=== PATIENT | male | born 1990 | race Caucasian/White ===

== ENCOUNTER 2020-03-18 00:51 | Emergency (ER) | payer OTHER, SELFPAY ==
[2020-03-18] VITALS (15 sets, daily range): BP systolic 118–175; BP diastolic 65–86; PULSE 95–130; RESP 15–16; TEMP 37; O2SAT 96–100; BMI 27.4
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
[2020-03-18] MEDS: ONDANSETRON 4 MG/2 ML INJ IV ×3 (02:05→06:14)
--- NOTE | 2020-03-18 02:07 | PC.NURSE ---
Pt had second emesis, had about 50 ml out. Provider aware
[2020-03-18 02:14] LABS: Add Manual Diff / Slide Review NO; Basophils Absolute Auto 0 /uL (0-100); Basophils Percent Auto 0.7 % (0-2); Eosinophils Absolute Auto 100 /uL (0-450); Eosinophils Percent Auto 1.4 % (2-4); Hematocrit 41.6 % (41-53); Hemoglobin 13.9 g/dL (13.5-17.5); Lymphocytes Absolute Auto 1800 /uL (1100-4500); Lymphocytes Percent Auto 31.9 % (25-40); Mean Corpuscular HGB Conc 33.5 % (30-36); Mean Corpuscular Hemoglobin 29.5 PG (26-34); Mean Corpuscular Volume 88.3 fL (80-100); Monocytes Absolute Auto 400 /uL (0-900); Monocytes Percent Auto 6.3 % (3-14); Neutrophils Absolute Auto 3400 /uL (1500-7000); Neutrophils Percent Auto 59.7 % (50-75); Platelet Count 297 X10^3/uL (150-400); Red Blood Cell Count 4.72 X10^6/uL (4.5-5.9); Red Cell Distribution Width 12.7 % (11.6-14.8); White Blood Cell Count 5.8 X10^3/uL (4.5-11.0)
[2020-03-18] MEDS: TET,DIPH,PERTUSS(ACELL),VAC/PF 0.5 ML SYRINGE IM (02:17)
[2020-03-18] MEDS: LIDO 1%/SOD BICARB 8.4% (10ML) 10 ML SYRINGE INJ (02:19)
[2020-03-18 02:21] LABS: BUN Creatinine Ratio 14.5 (6-22); Blood Urea Nitrogen 11 mg/dL (9-20); Calcium 9.2 mg/dL (8.4-10.2); Carbon Dioxide 30 mmol/L (22-32); Chloride 107 mmol/L (98-107); Estimated Glomerular Filt Rate > 60.0 mL/min (>60); Ethanol (ETOH) 188 mg/dL; Glucose 107 mg/dL (70-100); HEMOLYSIS < 15 (0-50); Potassium 3.9 mmol/L (3.4-5.1); Sodium 145 mmol/L (137-145)
--- NOTE | 2020-03-18 02:38 | PC.NURSE ---
Pt had 3rd episode of vomiting.
[2020-03-18 06:46] LABS: Ethanol (ETOH) 97 mg/dL
--- NOTE | 2020-03-18 07:08 | PC.NURSE ---
Tried oral trial with pt. Pt drank about 240ml. Pt kept down for 10 mins. Then tried ambulated trial. Immediately after ambulating pt had another emesis. Provider aware. Pt complained of headache. new order for tylenol.
[2020-03-18] MEDS: ACETAMINOPHEN 325 MG TABLET 650 MG PO (07:13)
--- NOTE | 2020-03-18 07:17 | PC.NURSE ---
Assumed care 0715 Pt alert, oriented, ambulatory, c/o continuing headache/nausea, md aware, family bedside
[2020-03-18] MEDS: LACTATED RINGERS 1,000 ML 1000 ML IV (07:23)
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
--- NOTE | 2020-03-18 09:10 | PC.NURSE ---
Pt taking small sips of water without further vomiting, reports persistent dizziness and headache, md notified
[2020-03-18] MEDS: ONDANSETRON 4 MG ODT PREPACK 1 BOTTLE MISC (10:28)
--- NOTE | 2020-03-23 18:36 | ED.HEATRA ---
HPI - Head Injury General Chief complaint: Trauma Stated complaint: Fall with head injury, ETOH Time Seen by Provider: 03/18/20 00:52 Source: EMS Mode of arrival: EMS Limitations: other (Intoxication) Related Data Previous Rx's Medication Instructions Recorded ondansetron 4 mg PO TID-QID PRN #10 tab 03/18/20 Allergies Allergy/AdvReac Type Severity Reaction Status Date / Time cranberry [CRANBERRY] Allergy Unknown Verified 03/23/20 15:53 Patient History Medical History (Updated 03/18/20 @ 10:22 by Dony Paez DO) Healthy adult Social History Smoking Status: Never smoker alcohol intake: current Smoking Status: Never smoker alcohol intake frequency: a few times a week Substance Use Type: marijuana Exam Initial Vital Signs Initial Vital Signs: Vital Signs Temperature 98.6 F 03/18/20 00:55 Pulse Rate 99 H 03/18/20 00:55 Respiratory Rate 15 03/18/20 00:55 Blood Pressure 153/74 H 03/18/20 00:55 Pulse Oximetry 99 03/18/20 00:55 Course Orders Ordered: ED Orders 03/23/20 18:07 CT head/brain wo con Stat Discontinued Medications Acetaminophen (Acetaminophen 325 Mg Tablet) 650 mg PO NOW ONE Stop: 03/18/20 07:07 Last Admin: 03/18/20 07:13 Dose: 650 mg Documented by: CHARMAINE Diphtheria/Tetanus/Acell Pertussis (Tet,Diph,Pertuss(Acell),Vac/Pf 0.5 Ml Syringe) 0.5 ml IM .ONCE ONE Stop: 03/18/20 01:07 Last Admin: 03/18/20 02:17 Dose: 0.5 ml Documented by: ARYAN Lactated Ringer's (Lactated Ringers) 1,000 mls @ 1,000 mls/hr IV BOLUS ONE Stop: 03/18/20 08:20 Last Infusion: 03/18/20 08:28 Dose: 0 mls/hr Documented by: Admin: 03/18/20 07:23 Dose: 1,000 mls/hr Documented by: CHARMAINE Lidocaine/Sodium Bicarbonate (Lido 1%/Sod Bicarb 8.4% (10ml) 10 Ml Syringe) 10 ml INJ NOW ONE Stop: 03/18/20 00:57 Last Admin: 03/18/20 02:19 Dose: 10 ml Documented by: ARYAN Ondansetron HCl (Ondansetron 4 Mg/2 Ml Inj) 4 mg IV NOW ONE Stop: 03/18/20 01:53 Last Admin: 03/18/20 02:05 Dose: 4 mg Documented by: ARYAN Ondansetron HCl (Ondansetron 4 Mg/2 Ml Inj) 4 mg IV NOW ONE Stop: 03/18/20 02:36 Last Admin: 03/18/20 02:41 Dose: 4 mg Documented by: TRAV Ondansetron HCl (Ondansetron 4 Mg/2 Ml Inj) 4 mg IV NOW ONE Stop: 03/18/20 06:04 Last Admin: 03/18/20 06:14 Dose: 4 mg Documented by: ARYAN Ondansetron HCl (Ondansetron 4 Mg Odt Prepack) 1 bottle MISC SEEINSTR ONE Stop: 03/18/20 10:18 Last Admin: 03/18/20 10:28 Dose: 1 bottle Documented by: CHARMAINE [facility] - Head Injury Lab Data Result diagrams: 03/18/20 02:00 03/18/20 02:00 Labs: Lab Results 03/18/20 03/18/20 03/18/20 Range/Units 02:00 02:00 06:30 WBC 5.8 (4.5-11.0) X10^3/uL RBC 4.72 (4.5-5.9) X10^6/uL Hgb 13.9 (13.5-17.5) g/dL Hct 41.6 (41-53) % MCV 88.3 (80-100) fL MCH 29.5 (26-34) PG MCHC 33.5 (30-36) % RDW 12.7 (11.6-14.8) % Plt Count 297 (150-400) X10^3/uL Neut % (Auto) 59.7 (50-75) % Lymph % (Auto) 31.9 (25-40) % [place] % (Auto) 6.3 (3-14) % Eos % (Auto) 1.4 L (2-4) % Baso % (Auto) 0.7 (0-2) % Neut # (Auto) 3400 (8329-9276) /uL Lymph # (Auto) 1800 (7317-4958) /uL [place] # (Auto) 400 (0-900) /uL Eos # (Auto) 100 (0-450) /uL Baso # (Auto) 0 (0-100) /uL Sodium 145 (137-145) mmol/L Potassium 3.9 (3.4-5.1) mmol/L Chloride 107 (98-107) mmol/L Carbon Dioxide 30 (22-32) mmol/L BUN 11 (9-20) mg/dL Creatinine 0.76 (0.66-1.25) mg/dL Estimated GFR > 60.0 (>60) mL/min BUN/Creatinine Ratio 14.5 (6-22) Glucose 107 H (70-100) mg/dL Calcium 9.2 (8.4-10.2) mg/dL Ethyl Alcohol 188 H 97 H ( - 10) mg/dL Discharge Plan Departure Patient Disposition: Home Clinical Impression: Alcohol intoxication Qualifiers: Complication of substance-induced condition: uncomplicated Qualified Code(s): F10.920 - Alcohol use, unspecified with intoxication, uncomplicated Laceration of scalp Qualifiers: Encounter type: initial encounter Qualified Code(s): S01.01XA - Laceration without foreign body of scalp, initial encounter Closed fracture of occipital bone Qualifiers: Encounter type: initial encounter Occipital fracture type: unspecified fracture of occiput Laterality: right Qualified Code(s): S02.119A - Unspecified fracture of occiput, initial encounter for closed fracture Abrasion of face Qualifiers: Encounter type: initial encounter Qualified Code(s): S00.81XA - Abrasion of other part of head, initial encounter Concussion Qualifiers: Encounter type: initial encounter Loss of consciousness presence/duration: with LOC of 30 min or less Qualified Code(s): S06.0X1A - Concussion with loss of consciousness of 30 minutes or less, initial encounter Instructions: DI for Trauma Activity Restrictions/Additional Instructions: *You have been diagnosed with [head injury resulting in non-displaced skull fracture, scalp laceration, and severe concussion ] *What to do: *Take medications as directed: tylenol or motrin for pain. Zofran for vomiting (transmitted to [facility]) *Follow up with your primary care provider in 2-3 days, call for an appointment. Let them know you were seen in the Emergency Department and that we ask that you be seen in follow up *Concussion: You have a slight concussion and will likely have a mild headache and some nausea for a few days. Avoiding highly stimulating activities and even TV or computers may be helpful in minimizing your symptoms. Avoid activities that will put you at risk for another head injury for at least a week. You can take tylenol or motrin for headache or the prescription provided for nausea/vomiting. Return for worsening or persistent symptoms *Laceration: Please keep the wound clean and dry to the best of your ability. Please monitor for signs of infection such as redness to the skin or increasing pain. Have the shira removed by your doctor in about 7 days. If you are unable to get into your doctor, we would be happy to remove them here. *Skull fracture: Your fracture will heal over the next 4-6 weeks and does not require any specific intervention. We have been in close consultation with neuro surgery at [facility] and there is no specific follow-up required with them *Return to ER if you should have any new, worsening or concerning symptoms, such as [inability to keep food or drink down, worsening neurologic symptoms such as blurred vision, altered mental status or other bothersome symptoms] Prescriptions: New ondansetron 4 mg tablet,disintegrating 4 mg PO TID-QID PRN (Reason: nausea and vomiting) Qty: 10 RF: 0
== END 2020-03-18 10:29 | disposition home or self-care (01) ==
PROVIDERS: Emergency Medicine; Emergency Provider Emergency Medicine
DX: S06.9X9A Unspecified intracranial injury with loss of consciousness of unspecified duration, initial encounter (principal); S02.119A Unspecified fracture of occiput, initial encounter for closed fracture; S01.01XA Laceration without foreign body of scalp, initial encounter; F10.120 Alcohol abuse with intoxication, uncomplicated; Y90.6 Blood alcohol level of 120-199 mg/100 ml; V00.131A Fall from skateboard, initial encounter; Z23 Encounter for immunization
CPT/HCPCS: 12002; 36415; 70450; 70486; 72125; 80048; 80320; 85025; 90471; 96361; 96374; 96376; 99284; 99285; 90715; J2405

== ENCOUNTER 2020-03-23 15:40 | Emergency (ER) | payer OTHER, SELFPAY ==
[2020-03-23 15:53] VITALS: BP 145/91; PULSE 69; RESP 13; TEMP 36.8; O2SAT 100; BMI 24.3
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
[2020-03-23 17:08] LABS: COVID19 -Nasal RAPID Negative (Negative)
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
[2020-03-23 20:11] VITALS: BP 143/85; PULSE 61; RESP 17; O2SAT 98
== END 2020-03-23 20:12 | disposition home or self-care (01) ==
PROVIDERS: Emergency Medicine; Emergency Provider Emergency Medicine
DX: S06.0X9A Concussion with loss of consciousness of unspecified duration, initial encounter (principal); S02.91XA Unspecified fracture of skull, initial encounter for closed fracture; R53.83 Other fatigue; Z20.828 Contact with and (suspected) exposure to other viral communicable diseases
CPT/HCPCS: 70450; 87635; 99282; 99283

== ENCOUNTER 2020-03-24 08:26 | Emergency (ER) | payer OTHER, SELFPAY ==
[2020-03-24] VITALS (14 sets, daily range): BP systolic 116–148; BP diastolic 56–84; PULSE 45–96; RESP 12–40; TEMP 36.8; O2SAT 97–99; BMI 25.0
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
[2020-03-24 08:33] LABS: Add Manual Diff / Slide Review NO; Basophils Absolute Auto 0 /uL (0-100); Basophils Percent Auto 0.5 % (0-2); Eosinophils Absolute Auto 100 /uL (0-450); Eosinophils Percent Auto 2.1 % (2-4); Hematocrit 39.7 % (41-53); Hemoglobin 14.4 g/dL (13.5-17.5); Lymphocytes Absolute Auto 2200 /uL (1100-4500); Lymphocytes Percent Auto 31.4 % (25-40); Mean Corpuscular HGB Conc 36.2 % (30-36); Mean Corpuscular Hemoglobin 29.7 PG (26-34); Mean Corpuscular Volume 82.1 fL (80-100); Monocytes Absolute Auto 1000 /uL (0-900); Monocytes Percent Auto 13.7 % (3-14); Neutrophils Absolute Auto 3700 /uL (1500-7000); Neutrophils Percent Auto 52.3 % (50-75); Platelet Count 343 X10^3/uL (150-400); Red Blood Cell Count 4.84 X10^6/uL (4.5-5.9); Red Cell Distribution Width 12.1 % (11.6-14.8); White Blood Cell Count 7.1 X10^3/uL (4.5-11.0)
[2020-03-24 08:40] LABS: BUN Creatinine Ratio 11.5 (6-22); Blood Urea Nitrogen 7 mg/dL (9-20); Calcium 8.5 mg/dL (8.4-10.2); Carbon Dioxide 18 mmol/L (22-32); Estimated Glomerular Filt Rate > 60.0 mL/min (>60); Ethanol (ETOH) < 10 mg/dL; Glucose 120 mg/dL (70-100); Magnesium 1.7 mg/dL (1.6-2.3); Potassium 5.2 mmol/L (3.4-5.1)
[2020-03-24 08:43] LABS: HEMOLYSIS 283 (0-50)
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
[2020-03-24 08:49] LABS: Sodium 110 mmol/L (137-145)
[2020-03-24 08:50] LABS: Chloride 75 mmol/L (98-107)
[2020-03-24 09:14] LABS: Carbon Dioxide 21 mmol/L (22-32); HEMOLYSIS < 15 (0-50); Potassium 3.7 mmol/L (3.4-5.1)
[2020-03-24] MEDS: SODIUM CHLORIDE 3 % 500 ML 17.5 ML IV (09:14)
[2020-03-24 09:17] LABS: Chloride 77 mmol/L (98-107); Sodium 109 mmol/L (137-145)
[2020-03-24 09:51] LABS: Prolactin 36.3 ng/mL (3.7-17.9)
[2020-03-24 09:57] LABS: Thyroid Stimulating Hormone 2.12 uIU/mL (0.47-4.68)
[2020-03-24 10:13] LABS: Appearance Urine UA CLEAR; Bilirubin Urine UA NEGATIVE (NEGATIVE); Color Urine UA YELLOW; Glucose Urine UA TRACE g/dL (Negative); Ketones Urine UA 1+ (NEGATIVE); Leukocyte Esterase Urine UA NEGATIVE (NEGATIVE); Nitrite Urine UA NEGATIVE (Negative); Occult Blood Urine UA NEGATIVE (Negative); Protein Urine UA NEGATIVE (Negative); Specific Gravity Urine UA 1.015 (1.000-1.035); pH Urine UA 6.5 (4.5-8.0)
[2020-03-24 10:22] LABS: UR Morphine/Opiate cutoff 300 Negative (Negative); Ur Creatinine Normal (Normal); Ur Specific Gravity Normal (Normal); Urine Amphetamines Negative (Negative); Urine Barbiturates Negative (Negative); Urine Benzodiazepines Negative (Negative); Urine Cocaine Negative (Negative); Urine MDMA Negative (Negative); Urine Methadone Negative (Negative); Urine Methamphetamines Negative (Negative); Urine Oxycodone Negative (Negative); Urine Phencyclidine Negative (Negative); Urine Tetrahydrocannabinol Negative (Negative); Urine Tricyclic Antidepressant Negative (Negative); Urine pH Normal (Normal)
[2020-03-24 10:43] LABS: COVID19 -Nasal RAPID Negative (Negative)
[2020-03-24 12:02] LABS: Sodium 110 mmol/L (137-145)
[2020-03-24 12:13] LABS: Osmolality, Serum 479
[2020-03-24 12:22] LABS: Creatinine Urine Random 90.5 mg/dL; Sodium Urine Random 78 mmol/L (30-90)
[2020-03-24 13:34] LABS: Sodium 107 mmol/L (137-145)
--- NOTE | 2020-03-24 13:41 | PC.NURSE ---
IV infusion increased to 20ml/hr per MD verbal order. Pt awake/alert. Reports remembering more now than he did upon admission. Denies pain, denies further needs at this time.
[2020-03-24] MEDS: LORazepam 2 MG/ML INJ 0.5 MG IV (14:32)
--- NOTE | 2020-03-24 15:04 | DI.RAD.S_ITS ---
PROCEDURE: XR CHEST 1V INDICATIONS: central line placement TECHNIQUE: One view of the chest was acquired. COMPARISON: None. FINDINGS: Surgical changes and devices: There is a right internal jugular catheter with the tip extending into the superior vena cava approximately 2 cm from the cavoatrial junction. Lungs and pleura: Lungs are clear. No pleural effusions or pneumothorax. Mediastinum: Mediastinal contours appear normal. Heart size is normal. Bones and chest wall: No suspicious bony lesions. Overlying soft tissues appear unremarkable. IMPRESSION: 1. No evidence of pneumothorax. Dictated by: Escobar Lucia M.D. on 03/24/2020 at 15:19 Approved by: Escobar Lucia M.D. on 03/24/2020 at 15:20
--- NOTE | 2020-03-24 15:18 | PC.NURSE ---
Central line placed by MD Flores. Placement confirmed by x ray. Labs drawn from line.
[2020-03-24 15:19] LABS: Sodium 109 mmol/L (137-145)
--- NOTE | 2020-03-24 17:49 | PC.NURSE ---
Critical serum osmolality called to [facility] ICU nurse Bethany.
[2020-03-24 17:53] LABS: Osmolality, Serum 226 (L)
== END 2020-03-24 16:25 | disposition short-term general hospital (02) ==
PROVIDERS: Emergency Provider Emergency Medicine
DX: R56.9 Unspecified convulsions (principal); E87.1 Hypo-osmolality and hyponatremia; S02.91XS Unspecified fracture of skull, sequela; Z20.828 Contact with and (suspected) exposure to other viral communicable diseases
CPT/HCPCS: 36415; 70450; 71045; 80048; 80051; 80305; 80320; 81003; 82570; 83735; 83930; 84146; 84295; 84300; 84443; 85025; 87635; 93005; 96365; 96366; 96375; 99284; 99291; 99292; J2060

== ENCOUNTER → 2020-04-15 11:52 | Outpatient (CLI) | payer OTHER, SELFPAY ==
[2020-04-15 13:02] LABS: Alanine Aminotransferase 19 IU/L (<50); Albumin 5.1 g/dL (3.5-5.0); Albumin Globulin Ratio 1.7 (1.0-2.8); Alkaline Phosphatase 37 U/L (38-126); Aspartate Aminotransferase 25 IU/L (17-59); BUN Creatinine Ratio 14.1 (6-22); Bilirubin Total 0.6 mg/dL (0.2-1.3); Blood Urea Nitrogen 10 mg/dL (9-20); Calcium 9.4 mg/dL (8.4-10.2); Carbon Dioxide 28 mmol/L (22-32); Chloride 91 mmol/L (98-107); Estimated Glomerular Filt Rate > 60.0 mL/min (>60); Glucose 88 mg/dL (70-100); HEMOLYSIS 22 (0-50); Potassium 3.7 mmol/L (3.4-5.1); Sodium 127 mmol/L (137-145); Total Protein 8.1 g/dL (6.3-8.2)
== END ==
PROVIDERS: PCP Family Medicine; Referring Provider Family Medicine; Visit Provider Family Medicine
DX: S06.0X9A Concussion with loss of consciousness of unspecified duration, initial encounter (principal); E87.1 Hypo-osmolality and hyponatremia
CPT/HCPCS: 80053

== ENCOUNTER → 2020-04-19 10:51 | Outpatient (CLI) | payer OTHER, SELFPAY ==
[2020-04-19 11:26] LABS: BUN Creatinine Ratio 14.3 (6-22); Blood Urea Nitrogen 11 mg/dL (9-20); Calcium 9.7 mg/dL (8.4-10.2); Carbon Dioxide 30 mmol/L (22-32); Chloride 97 mmol/L (98-107); Estimated Glomerular Filt Rate > 60.0 mL/min (>60); Glucose 109 mg/dL (70-100); HEMOLYSIS < 15 (0-50); Sodium 132 mmol/L (137-145)
== END ==
PROVIDERS: PCP Family Medicine; Referring Provider Family Medicine; Visit Provider Family Medicine
DX: E87.1 Hypo-osmolality and hyponatremia (principal)
CPT/HCPCS: 36415; 80048

== ENCOUNTER → 2020-04-25 11:04 | Outpatient (CLI) | payer OTHER, SELFPAY ==
[2020-04-25 11:52] LABS: BUN Creatinine Ratio 13.6 (6-22); Blood Urea Nitrogen 11 mg/dL (9-20); Calcium 9.6 mg/dL (8.4-10.2); Carbon Dioxide 31 mmol/L (22-32); Chloride 99 mmol/L (98-107); Estimated Glomerular Filt Rate > 60.0 mL/min (>60); Glucose 127 mg/dL (70-100); HEMOLYSIS < 15 (0-50); Potassium 3.8 mmol/L (3.4-5.1); Sodium 136 mmol/L (137-145)
== END ==
PROVIDERS: PCP Family Medicine; Referring Provider Family Medicine; Visit Provider Family Medicine
DX: E87.1 Hypo-osmolality and hyponatremia (principal)
CPT/HCPCS: 36415; 80048

== ENCOUNTER → 2020-05-05 12:59 | Outpatient (CLI) | payer OTHER, SELFPAY ==
[2020-05-05 14:15] LABS: Sodium 137 mmol/L (137-145)
== END ==
PROVIDERS: PCP Family Medicine; Referring Provider Family Medicine; Visit Provider Family Medicine
DX: E87.1 Hypo-osmolality and hyponatremia (principal)
CPT/HCPCS: 36415; 84295

== ENCOUNTER → 2020-05-11 11:46 | Outpatient (CLI) | payer OTHER, SELFPAY ==
[2020-05-11 13:02] LABS: Sodium 142 mmol/L (137-145)
== END ==
PROVIDERS: PCP Family Medicine; Referring Provider Family Medicine; Visit Provider Family Medicine
DX: E87.1 Hypo-osmolality and hyponatremia (principal)
CPT/HCPCS: 36415; 84295

== ENCOUNTER → 2020-06-28 17:06 | Outpatient (CLI) | payer OTHER, SELFPAY ==
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
== END ==
PROVIDERS: PCP Family Medicine; Referring Provider Family Medicine; Visit Provider Family Medicine
DX: E87.1 Hypo-osmolality and hyponatremia (principal); R30.0 Dysuria; M79.2 Neuralgia and neuritis, unspecified; M62.838 Other muscle spasm
CPT/HCPCS: 72040

== ENCOUNTER → 2020-06-29 11:55 | Outpatient (CLI) | payer OTHER, SELFPAY ==
[2020-06-29 12:10] LABS: Bacteria Urine None Seen; RBC Urine None Seen (0-5/HPF)
[2020-06-29 13:52] LABS: Appearance Urine UA CLEAR; Bilirubin Urine UA NEGATIVE (NEGATIVE); Color Urine UA YELLOW; Glucose Urine UA NEGATIVE (Negative); Ketones Urine UA NEGATIVE (NEGATIVE); Leukocyte Esterase Urine UA TRACE (NEGATIVE); Nitrite Urine UA NEGATIVE (Negative); Occult Blood Urine UA NEGATIVE (Negative); Protein Urine UA NEGATIVE (Negative); Specific Gravity Urine UA 1.025 (1.000-1.035); Urobilinogen Urine UA 0.2 E.U./dL (0.2)
[2020-06-29 14:04] LABS: Amorphous Sediment Urine 1+; Culture Indicated Urine Specimen Cultured; WBC Urine 1-5/HPF (0-5/HPF)
[2020-06-29 14:08] LABS: BUN Creatinine Ratio 11.4 (6-22); Blood Urea Nitrogen 9 mg/dL (9-20); Calcium 9.8 mg/dL (8.4-10.2); Carbon Dioxide 29 mmol/L (22-32); Chloride 99 mmol/L (98-107); Estimated Glomerular Filt Rate > 60.0 mL/min (>60); Glucose 104 mg/dL (70-100); HEMOLYSIS < 15 (0-50); Potassium 4.1 mmol/L (3.4-5.1); Sodium 137 mmol/L (137-145)
== END ==
PROVIDERS: PCP Family Medicine; Referring Provider Family Medicine; Visit Provider Family Medicine
DX: E87.1 Hypo-osmolality and hyponatremia (principal); M62.838 Other muscle spasm; M79.2 Neuralgia and neuritis, unspecified; R30.0 Dysuria
CPT/HCPCS: 36415; 80048; 81001; 87086

== ENCOUNTER → 2020-08-24 14:49 | Outpatient (CLI) | payer OTHER, SELFPAY ==
--- NOTE | 2020-08-24 14:50 | DI.RAD.S_ITS ---
PROCEDURE: XR LUMBAR SPINE 2-3V INDICATIONS: chronic low back pain TECHNIQUE: 3 views of the lumbar spine were acquired. COMPARISON: None. FINDINGS: Bones: 6 [id number] vertebrae are present, variant. L6-S1 facet joint hypertrophy. There is normal bony alignment. No vertebral body compression fractures. No suspicious bony lesions. Soft tissues: Overlying bowel gas pattern is normal. No suspicious soft tissue calcifications. 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 Minimal lower lumbar spine facet joint hypertrophy. Dictated by: Dheeraj Haider M.D. on 08/24/2020 at 17:14 Approved by: Dheeraj Haider M.D. on 08/24/2020 at 17:17
== END ==
PROVIDERS: PCP Family Medicine; Referring Provider Family Medicine; Visit Provider Family Medicine
DX: G89.29 Other chronic pain (principal); M54.2 Cervicalgia; M54.5 Low back pain; M62.838 Other muscle spasm
CPT/HCPCS: 72100

== ENCOUNTER 2020-08-30 19:12 | Emergency (ER) | payer OTHER, SELFPAY ==
[2020-08-30 19:17] VITALS: BP 141/63; PULSE 67; RESP 18; TEMP 36.9; O2SAT 100
[2020-08-30 19:37] LABS: Add Manual Diff / Slide Review NO; Basophils Absolute Auto 0 /uL (0-100); Basophils Percent Auto 1.1 % (0-2); Eosinophils Absolute Auto 100 /uL (0-450); Eosinophils Percent Auto 1.2 % (2-4); Hematocrit 38.9 % (41-53); Hemoglobin 13.2 g/dL (13.5-17.5); Lymphocytes Absolute Auto 1700 /uL (1100-4500); Lymphocytes Percent Auto 42.6 % (25-40); Mean Corpuscular Hemoglobin 28.8 PG (26-34); Mean Corpuscular Volume 84.7 fL (80-100); Monocytes Absolute Auto 400 /uL (0-900); Monocytes Percent Auto 8.9 % (3-14); Neutrophils Absolute Auto 1900 /uL (1500-7000); Neutrophils Percent Auto 46.2 % (50-75); Platelet Count 348 X10^3/uL (150-400); Red Cell Distribution Width 13.2 % (11.6-14.8); White Blood Cell Count 4.1 X10^3/uL (4.5-11.0)
[2020-08-30 19:48] LABS: Alanine Aminotransferase 16 IU/L (<50); Albumin 4.8 g/dL (3.5-5.0); Albumin Globulin Ratio 1.7 (1.0-2.8); Alkaline Phosphatase 46 U/L (38-126); Aspartate Aminotransferase 26 IU/L (17-59); BUN Creatinine Ratio 17.9 (6-22); Bilirubin Total 0.4 mg/dL (0.2-1.3); Blood Urea Nitrogen 15 mg/dL (9-20); Calcium 9.4 mg/dL (8.4-10.2); Carbon Dioxide 28 mmol/L (22-32); Chloride 104 mmol/L (98-107); Estimated Glomerular Filt Rate > 60.0 mL/min (>60); Globulin 2.8 g/dL (1.7-4.1); Glucose 100 mg/dL (70-100); HEMOLYSIS < 15 (0-50); Potassium 3.5 mmol/L (3.4-5.1); Sodium 141 mmol/L (137-145); Total Protein 7.6 g/dL (6.3-8.2)
--- NOTE | 2020-08-30 22:03 | ED_ITS ---
HPI - Weakness General Chief complaint: Weakness Stated complaint: lightheaded Time Seen by Provider: 08/30/20 20:19 Source: patient and family Mode of arrival: Ambulatory Limitations: no limitations History of Present Illness HPI Narrative: This is a 30-year-old male who comes with concern for lightheadedness. Patient has a history of skull fracture followed by development of SIADH and hyponatremia which resulted in persistent seizures and was hospitalized for several days until he was stabilized. Patient states that he has felt very fatigued the last few days and hit a wall today. He has had mild headaches intermittently which he states have been persistent but have not changed in intensity or pattern since his head injury. He denies any new pain other than occasionally when he looks down he will get is easing down his spine. He states he has been seen by his neurologist on had MRI to evaluate for multiple sclerosis which is known to develop in some patients after traumatic head injury. He states this was negative with no findings of his MRI which included his cervical spine. Patient states he occasionally gets tingling his fingers this is not changed or had any new patterns. Patient denies any chest pain or shortness of breath. No nausea or vomiting. No diarrhea constipation. No bowel or bladder incontinence. No new difficulty with ambulation or movement. He does note that he has only been sleeping 4 hours nightly for the past week. He has worked the last 9 days in a row and he fasted for 42 hours earlier in the week. Patient was concerned that he may have developed hypona tremia again came for evaluation. Related Data Previous Rx's Medication Instructions Recorded sodium chloride 1 gram tablet 1,000 mg PO DAILY #30 tab 04/25/20 prednisone 50 mg tablet 50 mg PO DAILY #5 tab 06/28/20 Allergies Allergy/AdvReac Type Severity Reaction Status Date / Time cranberry [CRANBERRY] Allergy Unknown Verified 08/24/20 14:36 Review of Systems Review of Systems ROS Unobtainable: All systems reviewed & are unremarkable except as noted in HPI and below Patient History Medical History Anosmia Asthma (~1994) Cerebral hyponatremia Chicken pox (~1999) Concussion Fractures (~2019) Healthy adult Malaria (~2006) Paresthesia Skull fracture, with loss of consciousness Social History Smoking Status: Never smoker alcohol intake: current Smoking Status: Never smoker alcohol intake frequency: a few times a week Substance Use Type: marijuana Exam Narrative Exam Narrative: GEN: well nourished, well appearing male, alert and oriented x 3, patient appears to be in mild distress. HEENT: Atraumatic, pupils are equal round reactive to light, extraocular movements are intact, nares are clear, moist mucous membranes, no facial droop. HEART: Regular rate and rhythm without murmur, clicks, rubs. LUNGS:Lungs clear to auscultation, no wheezes, rales, crackles, chest moves symmetrically ABD:bowel sounds normal, soft, non-tender, no guarding, rebound, rigidity, no masses noted, no hepatosplenomegaly :No CVA tenderness MSCL: Non-tender, no muscle atrophy, muscles strength 5/5 upper and lower extremities, full range of motion, normal gait NEURO:CN 2-12 intact, sensation normal, reflexes 2/4 upper and lower extremities. finger nose finger test normal, heel hector test normal SKIN: No rash, erythema or other skin changes noted. Initial Vital Signs Initial Vital Signs: Vital Signs Temperature 98.5 F 08/30/20 19:17 Pulse Rate 67 08/30/20 19:17 Respiratory Rate 18 08/30/20 19:17 Blood Pressure 141/63 H 08/30/20 19:17 Pulse Oximetry 100 08/30/20 19:17 Scores GCS Jerod coma scale eye opening: Spontaneous [place] coma scale verbal response: Orientated Jerod coma scale motor response: Obey commands Jerod coma scale total score: 15 Course Orders Ordered: ED Orders 08/30/20 19:20 EKG-12 Lead Stat 08/30/20 19:25 Complete Blood Count AUTO DIFF Stat Comprehensive Metabolic Panel Stat Vital Signs Vital signs: Vital Signs - 8 hr 08/30/20 19:17 08/30/20 22:33 Temperature 98.5 F Pulse Rate 67 60 Respiratory Rate 18 20 Blood Pressure 141/63 H 128/60 Pulse Oximetry 100 98 MDM - Weakness Lab Data Attestation: I reviewed the patient's lab results. Result diagrams: 08/30/20 19:25 08/30/20 19:25 Labs: Lab Results 08/30/20 08/30/20 Range/Units 19:25 19:25 WBC 4.1 L (4.5-11.0) X10^3/uL RBC 4.60 (4.5-5.9) X10^6/uL Hgb 13.2 L (13.5-17.5) g/dL Hct 38.9 L (41-53) % MCV 84.7 (80-100) fL MCH 28.8 (26-34) PG MCHC 34.0 (30-36) % RDW 13.2 (11.6-14.8) % Plt Count 348 (150-400) X10^3/uL Neut % (Auto) 46.2 L (50-75) % Lymph % (Auto) 42.6 H (25-40) % [place] % (Auto) 8.9 (3-14) % Eos % (Auto) 1.2 L (2-4) % Baso % (Auto) 1.1 (0-2) % Neut # (Auto) 1900 (0621-0778) /uL Lymph # (Auto) 1700 (7581-9932) /uL [place] # (Auto) 400 (0-900) /uL Eos # (Auto) 100 (0-450) /uL Baso # (Auto) 0 (0-100) /uL Sodium 141 (137-145) mmol/L Potassium 3.5 (3.4-5.1) mmol/L Chloride 104 (98-107) mmol/L Carbon Dioxide 28 (22-32) mmol/L BUN 15 (9-20) mg/dL Creatinine 0.84 (0.66-1.25) mg/dL Estimated GFR > 60.0 (>60) mL/min BUN/Creatinine Ratio 17.9 (6-22) Glucose 100 (70-100) mg/dL Calcium 9.4 (8.4-10.2) mg/dL Total Bilirubin 0.4 (0.2-1.3) mg/dL AST 26 (17-59) IU/L ALT 16 (<50) IU/L Alkaline Phosphatase 46 (38-126) U/L Total Protein 7.6 (6.3-8.2) g/dL Albumin 4.8 (3.5-5.0) g/dL Globulin 2.8 (1.7-4.1) g/dL Albumin/Globulin Ratio 1.7 (1.0-2.8) ECG Data Attestation: I personally reviewed and interpreted this ECG as follows: Prior ECG tracings: available for review Interpretation: Normal sinus rhythm sinus arrhythmia. Rate of 62 P are 156, QRS of 98 QTC 395. Patient has prior EKG from 03/24/2020 which does appear slightly different in V1 V2 when here for severe hyponatremia MDM Narrative Medical decision making narrative: Is a 30-year-old male with a sensation of lightheadedness but no syncope or near syncope, fatiguing continued symptoms from his initial head injury. Patient was concerned he had redeveloped hyponatremia. His sodium today is an appropriate range. Patient labs do show a mild leukopenia as well as slight anemia although patient does not have a significant change from his baseline. He does not have any platelet changes. Patient is following regularly with a neurologist. His neuro exam is normal. He does not have any other changes consistent with cardiac cause. Patient did have CTA on 05/20/2020 and has since had MRI in the last month with follow up 2 weeks ago to review the results. Yanet does not that he has only been s leeping 4 hours nightly for the past week with a very busy work schedule. He was also fasting for 42 hours. This combination with a significant history of TBI may be contributing to his symptoms. Patient was encouraged to reach out to his neurologist for close follow up and return for any other concerning or worsening symptoms. We also reviewed his labs today and noted his changes on his CBC and that is recommended to follow up and have recheck if not improving. Discharge Plan Departure Patient Disposition: Home Clinical Impression: Intermittent lightheadedness Activity Restrictions/Additional Instructions: Call your neurologist to discuss your symptoms tomorrow and set up follow up as needed Your sodium today is 141. Your labs do show are slightly low with a WBC count of 4.1 and hemoglobin of 13.2 Make sure you are getting sleep, at least 7-8 hours regularly. Please return if you have any other new or worsening symptoms, worsening lightheadedness or passing out, diaphoresis or sweating, severe headaches, new vision changes, new chest pain, shortness of breath, new changes such as loss of sensation, difficulty using your extremities, loss of bowel or bladder control, difficulty with ambulation or other new or concerning symptoms. Prescriptions: No Action sodium chloride 1 gram tablet 1,000 mg PO DAILY Qty: 30 RF: 0 prednisone 50 mg tablet 50 mg PO DAILY Qty: 5 RF: 0 Referrals: Casper Pulido MD [Primary Care Provider] -
[2020-08-30 22:33] VITALS: BP 128/60; PULSE 60; RESP 20; O2SAT 98
== END 2020-08-30 22:34 | disposition home or self-care (01) ==
PROVIDERS: Emergency Provider Emergency Medicine; PCP Family Medicine
DX: R42 Dizziness and giddiness (principal)
CPT/HCPCS: 36415; 80053; 85025; 93005; 99283; 99284

== ENCOUNTER 2020-10-18 22:20 | Emergency (ER) | payer OTHER, SELFPAY ==
[2020-10-18] VITALS (8 sets, daily range): BP systolic 120–156; BP diastolic 61–89; PULSE 63–83; RESP 12–29; TEMP 36.7; O2SAT 98–100; BMI 25.0
--- NOTE | 2020-10-18 22:48 | ED.NAVMDI ---
HPI - Nausea/Vomiting/Diarrhea General Chief complaint: Nausea/Vomiting/Diarrhea Stated complaint: vomiting, diarrhea Time Seen by Provider: 10/18/20 22:47 History of Present Illness HPI Narrative: Patient here with . Complains some o'clock tonight with innumerable amount of nonbloody vomiting and diarrhea. No pain. No recent illness fever chills cough cold congestion. History of TBI with hyponatremia. During history taking patient had brief seizure. No injury. Patient denies any recent pain. No headache. Had seizure with low sodium in the past but is not on any antiepileptic medication. Head brain injury February 2020. Seen here. No drug or alcohol abuse Related Data Previous Rx's Medication Instructions Recorded sodium chloride 1 gram tablet 1,000 mg PO DAILY #30 tab 04/25/20 prednisone 50 mg tablet 50 mg PO DAILY #5 tab 06/28/20 ondansetron 4 mg disintegrating 4 mg PO Q6H PRN #10 tab 10/19/20 tablet Allergies Allergy/AdvReac Type Severity Reaction Status Date / Time cranberry [CRANBERRY] Allergy Unknown Verified 08/24/20 14:36 Review of Systems Review of Systems Narrative: GENERAL: Denies chills, complaint fatigue, malaise, denied fever, sweats. HEENT: Denies sinus pain, ear pain, sore throat RESPIRATORY: Denies dyspnea, cough CARDIOVASCULAR: Denies chest pain, palpitations GASTROINTESTINAL: Complaint nausea, vomiting, and diarrhea, denies abdominal pain : Denies dysuria, frequency, hematuria MUSCULOSKELETAL: denies muscle or bony pain SKIN: Denies rash, skin lesions NEUROLOGIC: Denies weakness, numbness, complaint seizure Patient History Medical History Anosmia Asthma (~1994) Cerebral hyponatremia Chicken pox (~1999) Concussion Fractures (~2019) Healthy adult Malaria (~2006) Paresthesia Skull fracture, with loss of consciousness Social History Smoking Status: Never smoker alcohol intake: current Smoking Status: Never smoker alcohol intake frequency: a few times a week Substance Use Type: marijuana Exam Narrative Exam Narrative: GENERAL: in no distress, not toxic not dyspneic HEAD: Normocephalic. EYES: Pupils equal round No scleral icterus. No injection no discharge ENT: Mucous membranes moist. NECK: Trachea midline. CARDIOVASCULAR: Regular rate and rhythm without murmurs RESPIRATORY: Clear to auscultation. Breath sounds equal bilaterally. No wheezes, rales, or rhonchi. GASTROINTESTINAL: Abdomen soft, non-tender, bowel sounds present, no peritoneal signs EXTREMITIES: No gross deformities. BACK: No flank tenderness. NEURO: AOx4. Patient had brief less than 1 minute episode of eyes rolling back and unresponsive to voice here. . No tonic clonic seizure. SKIN: Warm and dry PSYCH: Not anxious, is cooperative Initial Vital Signs Initial Vital Signs: Vital Signs Temperature 98.1 F 10/18/20 22:34 Pulse Rate 83 10/18/20 22:34 Respiratory Rate 15 10/18/20 22:34 Blood Pressure 133/89 10/18/20 22:34 Pulse Oximetry 99 10/18/20 22:34 Course Course Course Narrative: No new issues during course of stay. Orders Ordered: Discontinued Medications Sodium Chloride (Normal Saline 0.9%) 1,000 mls @ 1,000 mls/hr IV BOLUS ONE Stop: 10/19/20 01:36 Last Infusion: 10/19/20 01:57 Dose: 0 mls/hr Documented by: Admin: 10/19/20 00:51 Dose: 1,000 mls/hr Documented by: KAYLA Lorazepam (Lorazepam 2 Mg/Ml Inj) 0.5 mg IV NOW ONE Stop: 10/18/20 22:48 Last Admin: 10/19/20 00:56 Dose: Not Given Documented by: KAYLA Ondansetron HCl (Ondansetron 4 Mg/2 Ml Inj) 4 mg IV NOW ONE Stop: 10/19/20 00:38 Last Admin: 10/19/20 00:51 Dose: 4 mg Documented by: KAYLA Ondansetron HCl (Ondansetron 4 Mg Odt Prepack) 1 bottle MISC SEEINSTR ONE Stop: 10/19/20 02:24 Last Admin: 10/19/20 02:33 Dose: 1 bottle Documented by: ARYAN Reevaluation(s) Reevaluation #1: Reviewed results with patient and . At this time still needs IV fluids and antiemetic control. Time: 00:40 Reevaluation #2: No nausea vomiting diarrhea at this time. Feeling much better. Resting comfortably. Time: 02:16 Vital Signs Vital signs: Vital Signs - 8 hr 10/18/20 22:34 10/18/20 22:52 10/18/20 23:01 Temperature 98.1 F Pulse Rate 83 63 76 Respiratory Rate 15 13 21 Blood Pressure 133/89 156/67 H Pulse Oximetry 99 100 100 10/18/20 23:02 10/18/20 23:15 10/18/20 23:30 Temperature Pulse Rate 70 76 77 Respiratory Rate 13 20 15 Blood Pressure 135/71 141/72 H 132/68 Pulse Oximetry 100 98 99 10/18/20 23:40 10/18/20 23:45 10/19/20 00:00 Temperature Pulse Rate 78 75 75 Respiratory Rate 29 H 12 18 Blood Pressure 120/75 124/61 128/64 Pulse Oximetry 99 100 100 10/19/20 00:15 10/19/20 00:37 10/19/20 01:00 Temperature Pulse Rate 81 78 78 Respiratory Rate 18 Blood Pressure 130/64 Pulse Oximetry 99 98 98 10/19/20 01:30 Temperature Pulse Rate 78 Respiratory Rate Blood Pressure Pulse Oximetry 99 MDM - Nausea/Vomiting/Diarrhea Differential Diagnosis Differential diagnosis: Likely other (Viral illness/hyponatremia/vasovagal) Lab Data Result diagrams: 10/18/20 22:45 10/18/20 22:45 Labs: Lab Results 10/18/20 10/18/20 10/18/20 Range/Units 22:45 22:45 22:45 WBC 12.0 H (4.5-11.0) X10^3/uL RBC 5.07 (4.5-5.9) X10^6/uL Hgb 14.8 (13.5-17.5) g/dL Hct 43.9 (41-53) % MCV 86.6 (80-100) fL MCH 29.1 (26-34) PG MCHC 33.6 (30-36) % RDW 12.9 (11.6-14.8) % Plt Count 355 (150-400) X10^3/uL Neut % (Auto) 77.3 H (50-75) % Lymph % (Auto) 16.5 L (25-40) % [place] % (Auto) 5.1 (3-14) % Eos % (Auto) 0.8 L (2-4) % Baso % (Auto) 0.3 (0-2) % Neut # (Auto) 9300 H (7567-7808) /uL Lymph # (Auto) 2000 (0813-8926) /uL [place] # (Auto) 600 (0-900) /uL Eos # (Auto) 100 (0-450) /uL Baso # (Auto) 0 (0-100) /uL Sodium (137-145) mmol/L Potassium (3.4-5.1) mmol/L Chloride (98-107) mmol/L Carbon Dioxide (22-32) mmol/L BUN (9-20) mg/dL Creatinine (0.66-1.25) mg/dL Estimated GFR (>60) mL/min BUN/Creatinine Ratio (6-22) Glucose (70-100) mg/dL Lactate 0.7 (0.7-2.1) mmol/L Calcium (8.4-10.2) mg/dL Magnesium 1.9 (1.6-2.3) mg/dL Total Bilirubin (0.2-1.3) mg/dL AST (17-59) IU/L ALT (<50) IU/L Alkaline Phosphatase (38-126) U/L Troponin I < 0.012 (0.01-0.034) ng/mL Total Protein (6.3-8.2) g/dL Albumin (3.5-5.0) g/dL Globulin (1.7-4.1) g/dL Albumin/Globulin Ratio (1.0-2.8) Procalcitonin 0.04 (<0.5) ng/mL Stl C. cayetanensis PCR (Not Detect) Stool Rotavirus (PCR) (Not Detect) Stool Adenovirus (PCR) (Not Detect) Stool Astrovirus (PCR) (Not Detect) Stool Cryptosporidium PCR (Not Detect) Stl E.coli Shiga Tox PCR (Not Detect) St Sh/Enteroin Ecoli PCR (Not Detect) Stool E coli O157 PCR Stl Enterotoxigenic E PCR (Not Detect) Stool EPEC (PCR) (Not Detect) Stl E. histolytica PCR (Not Detect) Stool Giardia Lamblia PCR (Not Detect) Stool Sapovirus (PCR) (Not Detect) Stl P. shigelloides PCR (Not Detect) St Y.enterocolitica PCR (Not Detect) Stool Vibrio (PCR) (Not Detect) Stl Vibrio cholerae PCR (Not Detect) Stl Enteroaggr Ecoli PCR (Not Detect) Stl Norovirus GI/GII PCR (Not Detect) Campylobacter (PCR) (Not Detect) C. difficile Tox (PCR) (Not Detect) Salmonella (PCR) (Not Detect) 10/18/20 10/18/20 Range/Units 22:45 22:50 WBC (4.5-11.0) X10^3/uL RBC (4.5-5.9) X10^6/uL Hgb (13.5-17.5) g/dL Hct (41-53) % MCV (80-100) fL MCH (26-34) PG MCHC (30-36) % RDW (11.6-14.8) % Plt Count (150-400) X10^3/uL Neut % (Auto) (50-75) % Lymph % (Auto) (25-40) % [place] % (Auto) (3-14) % Eos % (Auto) (2-4) % Baso % (Auto) (0-2) % Neut # (Auto) (0647-8265) /uL Lymph # (Auto) (4941-3669) /uL [place] # (Auto) (0-900) /uL Eos # (Auto) (0-450) /uL Baso # (Auto) (0-100) /uL Sodium 139 (137-145) mmol/L Potassium 4.3 (3.4-5.1) mmol/L Chloride 104 (98-107) mmol/L Carbon Dioxide 25 (22-32) mmol/L BUN 18 (9-20) mg/dL Creatinine 0.72 (0.66-1.25) mg/dL Estimated GFR > 60.0 (>60) mL/min BUN/Creatinine Ratio 25.0 H (6-22) Glucose 95 (70-100) mg/dL Lactate (0.7-2.1) mmol/L Calcium 9.5 (8.4-10.2) mg/dL Magnesium (1.6-2.3) mg/dL Total Bilirubin 0.8 (0.2-1.3) mg/dL AST 36 (17-59) IU/L ALT 24 (<50) IU/L Alkaline Phosphatase 48 (38-126) U/L Troponin I (0.01-0.034) ng/mL Total Protein 7.9 (6.3-8.2) g/dL Albumin 4.7 (3.5-5.0) g/dL Globulin 3.2 (1.7-4.1) g/dL Albumin/Globulin Ratio 1.5 (1.0-2.8) Procalcitonin (<0.5) ng/mL Stl C. cayetanensis PCR Not detected (Not Detect) Stool Rotavirus (PCR) Not detected (Not Detect) Stool Adenovirus (PCR) Not detected (Not Detect) Stool Astrovirus (PCR) Not detected (Not Detect) Stool Cryptosporidium PCR Not detected (Not Detect) Stl E.coli Shiga Tox PCR Not detected (Not Detect) St Sh/Enteroin Ecoli PCR Not detected (Not Detect) Stool E coli O157 PCR Not Reportable Stl Enterotoxigenic E PCR Not detected (Not Detect) Stool EPEC (PCR) Not detected (Not Detect) Stl E. histolytica PCR Not detected (Not Detect) Stool Giardia Lamblia PCR Not detected (Not Detect) Stool Sapovirus (PCR) Not detected (Not Detect) Stl P. shigelloides PCR Not detected (Not Detect) St Y.enterocolitica PCR Not detected (Not Detect) Stool Vibrio (PCR) Not detected (Not Detect) Stl Vibrio cholerae PCR Not detected (Not Detect) Stl Enteroaggr Ecoli PCR Not detected (Not Detect) Stl Norovirus GI/GII PCR Detected H (Not Detect) Campylobacter (PCR) Not detected (Not Detect) C. difficile Tox (PCR) Not detected (Not Detect) Salmonella (PCR) Not detected (Not Detect) Point of Care Testing Glucose POC [address] scan - head: Radiologist's Impression: Read by overnight radiologist no acute intracranial findings. ECG Data Interpretation: Normal sinus rhythm rate [address] elevation depression. EKG is normal sinus rhythm rate [ ] and free of any signs of ischemia or ectopy. No ST segmental elevation or depression. No T wave inversions MDM Narrative Medical decision making narrative: Vasovagal episode. Viral gastroenteritis. Appropriate for discharge home. Exam and laboratory studies and imaging reassuring. Patient and feel comfortable observation at home and understand if worsening will come back to prevent hyponatremia. White count noted however has viral infection. No CT imaging of abdomen indicated. No peritoneal signs. No abdominal tenderness Discharge Plan Departure Patient Disposition: Home Clinical Impression: Viral gastroenteritis Instructions: Norovirus Infection, DI for Viral Gastroenteritis -- Adult, DI for Nausea -- Adult, DI for Vomiting -- Adult Activity Restrictions/Additional Instructions: Return immediately if any worsening of nausea vomiting or diarrhea. See family doctor this week for recheck. Keep well hydrated. Salty foods are helpful to prevent hyponatremia. Prescriptions: New ondansetron 4 mg tablet,disintegrating 4 mg PO Q6H PRN (Reason: nausea and vomiting) Qty: 10 RF: 0 No Action sodium chloride 1 gram tablet 1,000 mg PO DAILY Qty: 30 RF: 0 prednisone 50 mg tablet 50 mg PO DAILY Qty: 5 RF: 0 Referrals: Casper Pulido MD [Primary Care Provider] - Stand Alone Forms: Work Release Note
--- NOTE | 2020-10-18 22:53 | PC.NURSE ---
2245: Pt states I feel like I'm going to pass out. Pt eyes rolled back to left, pupils fully dilated, head to the left, and pale. Two RNs in room/witnessed. notified and immediately to room. HR 35, BP 153/68, RA 98%. Pt then abruptly sat up and eyes were wide open. Reoriented to situation. Pt remembered where he was and why he was here. Spouse is at bedside.
[2020-10-18 22:59] LABS: Add Manual Diff / Slide Review NO; Basophils Absolute Auto 0 /uL (0-100); Basophils Percent Auto 0.3 % (0-2); Eosinophils Absolute Auto 100 /uL (0-450); Eosinophils Percent Auto 0.8 % (2-4); Hematocrit 43.9 % (41-53); Hemoglobin 14.8 g/dL (13.5-17.5); Lymphocytes Absolute Auto 2000 /uL (1100-4500); Lymphocytes Percent Auto 16.5 % (25-40); Mean Corpuscular HGB Conc 33.6 % (30-36); Mean Corpuscular Hemoglobin 29.1 PG (26-34); Mean Corpuscular Volume 86.6 fL (80-100); Monocytes Absolute Auto 600 /uL (0-900); Monocytes Percent Auto 5.1 % (3-14); Neutrophils Absolute Auto 9300 /uL (1500-7000); Neutrophils Percent Auto 77.3 % (50-75); Platelet Count 355 X10^3/uL (150-400); Red Blood Cell Count 5.07 X10^6/uL (4.5-5.9); Red Cell Distribution Width 12.9 % (11.6-14.8)
--- NOTE | 2020-10-18 23:02 | DI.CT.S_ITS ---
PROCEDURE: CT HEAD/BRAIN WO CON INDICATIONS: Injury/seizure TECHNIQUE: Noncontrast 4.5 mm thick angled axial sections acquired from the foramen magnum to the vertex, with coronal and sagittal reformats. For radiation dose reduction, the following was used: automated exposure control, adjustment of mA and/or kV according to patient size. COMPARISON: [facility], CT, CT HEAD/BRAIN WO CON, 03/24/2020, 8:30. [facility], CT, CT HEAD/BRAIN WO CON, 03/23/2020, 18:40. [facility], CT, CT HEAD/BRAIN WO CON, 03/18/2020, 9:07. [facility], CT, CT HEAD/BRAIN WO CON, 03/18/2020, 0:59. FINDINGS: Image quality: Excellent. CSF spaces: Basal cisterns are patent. No extra-axial fluid collections. Ventricles are normal in size and shape. Brain: No midline shift. No intracranial masses or hemorrhage. Brown-white matter interface is normal. Skull and face: Nondepressed right occipital bone fracture stable compared to March 24, 2020. The visualized facial bones are intact, without suspicious lesions. Sinuses: Visualized sinuses and mastoids are clear. IMPRESSION: No acute intracranial disease process. Dictated by: Nadine Rodríguez MD, PhD on 10/19/2020 at 7:18 Approved by: Nadine Rodríguez MD, PhD on 10/19/2020 at 7:20
[2020-10-18 23:16] LABS: Lactate (Lactic Acid) 0.7 mmol/L (0.7-2.1); Magnesium 1.9 mg/dL (1.6-2.3)
[2020-10-18 23:17] LABS: Alanine Aminotransferase 24 IU/L (<50); Albumin 4.7 g/dL (3.5-5.0); Albumin Globulin Ratio 1.5 (1.0-2.8); Alkaline Phosphatase 48 U/L (38-126); Aspartate Aminotransferase 36 IU/L (17-59); Bilirubin Total 0.8 mg/dL (0.2-1.3); Blood Urea Nitrogen 18 mg/dL (9-20); Calcium 9.5 mg/dL (8.4-10.2); Carbon Dioxide 25 mmol/L (22-32); Chloride 104 mmol/L (98-107); Estimated Glomerular Filt Rate > 60.0 mL/min (>60); Globulin 3.2 g/dL (1.7-4.1); Glucose 95 mg/dL (70-100); Potassium 4.3 mmol/L (3.4-5.1); Sodium 139 mmol/L (137-145); Total Protein 7.9 g/dL (6.3-8.2)
[2020-10-18 23:19] LABS: HEMOLYSIS 57 (0-50)
[2020-10-18 23:29] LABS: Troponin I < 0.012 ng/mL (0.01-0.034)
[2020-10-18 23:34] LABS: Procalcitonin 0.04 ng/mL (<0.5)
[2020-10-19] VITALS (8 sets, daily range): BP systolic 113–130; BP diastolic 53–64; PULSE 75–98; RESP 18; O2SAT 97–100
[2020-10-19 00:19] LABS: Adenovirus F 40/41 Not Detected (Not Detect); Astrovirus Not Detected (Not Detect); Campylobacter Not Detected (Not Detect); Clostridium difficile toxin AB Not Detected (Not Detect); Cryptosporidium Not Detected (Not Detect); Cyclospora cayetanensis Not Detected (Not Detect); Entamoeba histolytica Not Detected (Not Detect); Enteroaggregative E.coli Not Detected (Not Detect); Enteropathogenic E.coli Not Detected (Not Detect); Enterotoxigenic E.coli It/st Not Detected (Not Detect); Giardia lamblia Not Detected (Not Detect); Norovirus GI/GII Detected (Not Detect); Plesiomonsa shigelloides Not Detected (Not Detect); Rotavirus A Not Detected (Not Detect); Salmonella Not Detected (Not Detect); Sapovirus Not Detected (Not Detect); Shiga-like toxin-prod E.coli Not Detected (Not Detect); Shigella/Enteroinvasive E.coli Not Detected (Not Detect); Vibrio Not Detected (Not Detect); Vibrio cholerae Not Detected (Not Detect); Yersinia enterocolitica Not Detected (Not Detect)
[2020-10-19] MEDS: SODIUM CHLORIDE 0.9% 1,000 ML 1000 ML IV (00:51)
[2020-10-19] MEDS: ONDANSETRON 4 MG/2 ML INJ IV (00:51)
[2020-10-19] MEDS: ONDANSETRON 4 MG ODT PREPACK 1 BOTTLE MISC (02:33)
== END 2020-10-19 02:43 | disposition home or self-care (01) ==
PROVIDERS: Emergency Provider Emergency Medicine; Family Provider Family Medicine; PCP Family Medicine
DX: A08.11 Acute gastroenteropathy due to Norwalk agent (principal); A08.39 Other viral enteritis
CPT/HCPCS: 36415; 70450; 80053; 82962; 83605; 83735; 84145; 84484; 85025; 87507; 93005; 96361; 96374; 99284; J2405

== ENCOUNTER 2020-12-02 14:30 | Outpatient (RCR) | payer OTHER, SELFPAY ==
--- NOTE | 2020-09-19 16:11 | PT.OPPOC ---
Physical, Occupational & Speech Therapy At [facility] Current Diagnoses Other chronic pain (09/19/20) Cervicalgia (09/19/20) Low back pain (09/19/20) Other muscle spasm (09/19/20) Concussion with loss of consciousness of 30 minutes or less, sequela (09/19/20) Strain of muscle and tendon of front wall of thorax, initial encounter (09/19/20) Visit Care Team Role Provider Type Casper Pulido MD Attending Provider Physician Family Provider Primary Care Provider Referring Provider Specialty: Family Practice Address: [address] [place] [address] Email: [email or web address] Plan Of Care PT-OP-T Assessment and Plan Start: 09/19/20 07:31 Freq: Status: Active Protocol: Document 09/19/20 07:30 AMB (Rec: 09/19/20 16:10 AMB [email or web address]) Physical Therapy Assessment Rehab Potential Rehabilitation Potential Good Evaluation Complexity Number of Personal Factors/Comorbidities 1-2 Impairments Impairments Activity Tolerance,Functional Activities,Pain,Strength Goals Three Impairment Return to lifting Short Term Goal (STG) Fazal will work a full shift at work without burning/ numbness in his hands or feet. STG Duration 4 weeks Slurry Tank Operator Goal (LTG) Fazal will return to a normal weightlifting workout without rebout numbness/pain in his hands or feet. LTG Duration 8 weeks Two Impairment Dizziness Short Term Goal (STG) Fazal will lie down flat without dizziness. STG Duration 4 weeks Slurry Tank Operator Goal (LTG) Fazal will roll over in bed without dizziness. LTG Duration 8 weeks One Impairment Neck pain Short Term Goal (STG) Fazal will look up with full extension without neck pain. STG Duration 4 weeks Slurry Tank Operator Goal (LTG) Fazal will look down with full cervical flexion without any numbness/tingling. LTG Duration 8 weeks Assessment Summary Assessment Fazal attends physical therapy secondary to burning pain in his feet and hands that started approximately 3 weeks ago, when he returned to heavy lifting at the gym for the first time after his concussion. He had been lifting 15# max at home, but nothing heavy prior to this. He did have X-rays of his cervical and lumbar spine which did show lumbarization of S1 and cervical facet arthropathy and narrowing of the disc spaces at C4-5 and C56. The burning in his feet and hands was not in a dermatomal pattern and is very variable in nature, sometimes the dorsal aspect sometimes the plantar/palmar, sometimes just a couple fingers. Pt does have signficant tension throughout cervical musculature and pain with cervical extension. Did check for BPPV due to pt's subjective description of spinning dizziness with rolling right. Thang-Hallpike did provoke significant symptoms but no nystagmus with room light, will need to recheck with Frenzel lenses. Started to educate patient on concept of energy conservation , which will need to be a large part of his rehab. Physical Therapy Plan Frequency and Duration Frequency of Treatment 2x/Week Duration of Treatment 8 weeks Plan of Care Start Date 09/19/20 Plan of Care End Date 11/14/20 Therapeutic Interventions Therapeutic Interventions Home Exercise Program,Manual Therapy,Neuromuscular Re- education,Self-Care/Home Management,Therapeutic Activities,Therapeutic Exercises Modalities Cold Pack/Ice Massage,Electric Stimulation Next Visit Focus/Plan Next Note Type Treatment Note Next Visit Plan Reassess BPPV, treat neck, educate on gentle return to exercise/function, energy conservation. Plan of Care Dates Plan of Care Start Date 09/19/20 Plan of Care End Date 11/14/20 Electronically Signed by: Nevin Barrera, PT 09/19/20 [id number] Please Sign and Return: I have reviewed this Plan of Care and certify that the skilled therapy services above are required to meet the patient?s needs. Physician Signature Date Printed Name and Credentials Clinical Instructor Signature Printed Name and Credentials
--- NOTE | 2020-09-19 16:11 | PT.OIE ---
Current Diagnoses Other chronic pain (09/19/20) Cervicalgia (09/19/20) Low back pain (09/19/20) Other muscle spasm (09/19/20) Concussion with loss of consciousness of 30 minutes or less, sequela (09/19/20) Strain of muscle and tendon of front wall of thorax, initial encounter (09/19/20) Past Medical History (Last Reviewed 08/30/20 @ 22:29 by Maddi Mathis DO) Anosmia Asthma (~1994) Cerebral hyponatremia Chicken pox (~1999) Concussion Fractures (~2019) Healthy adult Malaria (~2006) Paresthesia Skull fracture, with loss of consciousness Visit Care Team Role Provider Type Casper Pulido MD Attending Provider Physician Family Provider Primary Care Provider Referring Provider Specialty: Family Practice Address: [address] [place] [address], [facility] Email: [email or web address] Physical Therapy Initial Evaluation PT-OP-A Visit Information Start: 09/19/20 07:31 Freq: Status: Active Protocol: Document 09/19/20 07:30 AMB (Rec: 09/19/20 11:49 AMB [email or web address]) Out-Patient Physical Therapy Visit Information Visit Information Visit Type Initial Evaluation Visit Start Time 07:30 Visit Stop Time 08:20 Total Visit Minutes 50 Visit Number 1 PT-OP-B Current Condition Start: 09/19/20 07:31 Freq: Status: Active Protocol: Document 09/19/20 07:30 AMB (Rec: 09/19/20 07:58 AMB [id number]) Current Condition History of Current Condition Onset Date February 2020 Current Complaints paresthesias in bilat hands and feet associated with exercise History of Current Condition February had a traumatic brain injury (long boarding down [address]), lost conciousness for about 3 minutes, does not remember any events of that day. Was on bed rest for 2 months. 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 Dizziness- some days really bad other days not -off balance. Can't quite focus. When I roll over in bed to the right I get dizzy for a few seconds. Sensitivity to light. Blurry vision in the distant especially in low light scenarios. 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 Prior history of low back pain. Current neck pain is significantly worse than it was before the accident. Treatment Goals Patient/Caregiver Goals Return to gym workouts without burning in hands and feet Prior Functional Status Baseline Function- ADL's Independent Baseline Function- Mobility Independent Current Functional Impairments (Reported) Functional Limitations- ADL's Dizziness/headaches/neck pain with ADLs and work, numbness/ burning in hands and feet in the evenings after working out Personal Factors Other Personal Factors That May Effect History of one concussion in Therapy/Recovery high school, history of pushing body with exercise ( college soccer) PT-OP-C Subjective Start: 09/19/20 07:31 Freq: Status: Active Protocol: Document 09/19/20 07:30 AMB (Rec: 09/19/20 11:49 AMB [email or web address]) Patient Questionnaires Quick Dash- Upper Extremity Quick Dash UE Score 20 Quick Dash UE Impairment 20 to 39% Impaired (Score 20- 39) PT-OP-J Posture/Palpation/Skin Start: 09/19/20 07:31 Freq: Status: Active Protocol: Document 09/19/20 12:45 AMB (Rec: 09/19/20 12:49 AMB [email or web address]) Posture Evaluation Comments Posture Comments Forward head PT-OP-K Range of Motion Start: 09/19/20 07:31 Freq: Status: Active Protocol: Document 09/19/20 12:45 AMB (Rec: 09/19/20 12:49 AMB [email or web address]) Cervical Spine Range of Motion Cervical Spine Active Degrees Comments Full range, pain with end range extension, feels off feeling with full cervical flexion down through his chest , pt's MD is aware and that is why he got imaging PT-OP-L Special Tests Start: 09/19/20 07:31 Freq: Status: Active Protocol: Document 09/19/20 12:45 AMB (Rec: 09/19/20 12:49 AMB [email or web address]) Special Tests Cervical Spine Special Tests Vertebral Artery Test Results - Alar Ligament Test Results - PT-OP-M Strength Start: 09/19/20 07:31 Freq: Status: Active Protocol: Document 09/19/20 12:45 AMB (Rec: 09/19/20 12:49 AMB [email or web address]) Hip Strength Hip Manual Muscle Testing Left Comments All 5/5 Bilateral hip, knee, ankle PT-OP-O Vestibular Start: 09/19/20 12:45 Freq: Status: Active Protocol: Document 09/19/20 12:45 AMB (Rec: 09/19/20 12:49 AMB [email or web address]) Vestibular Assessment Comments Vestibular Comments R [place]-Hallpike positive for pt subjective dizziness but no nystagmus visualized with room light PT-OP-T Assessment and Plan Start: 09/19/20 07:31 Freq: Status: Active Protocol: Document 09/19/20 07:30 AMB (Rec: 09/19/20 16:10 AMB [email or web address]) Physical Therapy Assessment Rehab Potential Rehabilitation Potential Good Evaluation Complexity Number of Personal Factors/Comorbidities 1-2 Impairments Impairments Activity Tolerance,Functional Activities,Pain,Strength Goals Three Impairment Return to lifting Short Term Goal (STG) Fazal will work a full shift at work without burning/ numbness in his hands or feet. STG Duration 4 weeks Chcf Goal (LTG) Fazal will return to a normal weightlifting workout without rebout numbness/pain in his hands or feet. LTG Duration 8 weeks Two Impairment Dizziness Short Term Goal (STG) Fazal will lie down flat without dizziness. STG Duration 4 weeks Antisqueak Worker Goal (LTG) Fazal will roll over in bed without dizziness. LTG Duration 8 weeks One Impairment Neck pain Short Term Goal (STG) Fazal will look up with full extension without neck pain. STG Duration 4 weeks Chcf Goal (LTG) Fazal will look down with full cervical flexion without any numbness/tingling. LTG Duration 8 weeks Assessment Summary Assessment Fazal attends physical therapy secondary to burning pain in his feet and hands that started approximately 3 weeks ago, when he returned to heavy lifting at the gym for the first time after his concussion. He had been lifting 15# max at home, but nothing heavy prior to this. He did have X-rays of his cervical and lumbar spine which did show lumbarization of S1 and cervical facet arthropathy and narrowing of the disc spaces at C4-5 and C56. The burning in his feet and hands was not in a dermatomal pattern and is very variable in nature, sometimes the dorsal aspect sometimes the plantar/palmar, sometimes just a couple fingers. Pt does have signficant tension throughout cervical musculature and pain with cervical extension. Did check for BPPV due to pt's subjective description of spinning dizziness with rolling right. Thang-Hallpike did provoke significant symptoms but no nystagmus with room light, will need to recheck with Frenzel lenses. Started to educate patient on concept of energy conservation , which will need to be a large part of his rehab. Physical Therapy Plan Frequency and Duration Frequency of Treatment 2x/Week Duration of Treatment 8 weeks Plan of Care Start Date 09/19/20 Plan of Care End Date 11/14/20 Therapeutic Interventions Therapeutic Interventions Home Exercise Program,Manual Therapy,Neuromuscular Re- education,Self-Care/Home Management,Therapeutic Activities,Therapeutic Exercises Modalities Cold Pack/Ice Massage,Electric Stimulation Next Visit Focus/Plan Next Note Type Treatment Note Next Visit Plan Reassess BPPV, treat neck, educate on gentle return to exercise/function, energy conservation.
--- NOTE | 2020-09-23 14:35 | PT.OTN ---
Current Diagnoses Other chronic pain (09/23/20) Cervicalgia (09/23/20) Low back pain (09/23/20) Other muscle spasm (09/23/20) Concussion with loss of consciousness of 30 minutes or less, sequela (09/23/20) Strain of muscle and tendon of front wall of thorax, initial encounter (09/23/20) Physical Therapy Treatment Note PT-OP-A Visit Information Start: 09/19/20 07:31 Freq: Status: Active Protocol: Document 09/23/20 08:15 AMB (Rec: 09/23/20 14:35 AMB [email or web address]) Out-Patient Physical Therapy Visit Information Visit Information Visit Type Treatment Note Visit Start Time 08:15 Visit Stop Time 09:01 Total Visit Minutes 46 Visit Number 2 PT-OP-B Current Condition Start: 09/19/20 07:31 Freq: Status: Active Protocol: Document 09/19/20 07:30 AMB (Rec: 09/19/20 07:58 AMB [id number]) Current Condition History of Current Condition Onset Date February 2020 Current Complaints paresthesias in bilat hands and feet associated with exercise History of Current Condition February had a traumatic brain injury (long boarding down [address]), lost conciousness for about 3 minutes, does not remember any events of that day. Was on bed rest for 2 months. 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 Dizziness- some days really bad other days not -off balance. Can't quite focus. When I roll over in bed to the right I get dizzy for a few seconds. Sensitivity to light. Blurry vision in the distant especially in low light scenarios. Walks 5 miles a days, lifts about 250 50# boxes at [email or web address] fore work currently, previous baseline was running 7 miles 6 days a week and heavy lifting . Prior history of low back pain. Current neck pain is significantly worse than it was before the accident. Treatment Goals Patient/Caregiver Goals Return to gym workouts without burning in hands and feet Prior Functional Status Baseline Function- ADL's Independent Baseline Function- Mobility Independent Current Functional Impairments (Reported) Functional Limitations- ADL's Dizziness/headaches/neck pain with ADLs and work, numbness/ burning in hands and feet in the evenings after working out Personal Factors Other Personal Factors That May Effect History of one concussion in Therapy/Recovery high school, history of pushing body with exercise ( college soccer) PT-OP-C Subjective Start: 09/19/20 07:31 Freq: Status: Active Protocol: Document 09/23/20 08:15 AMB (Rec: 09/23/20 14:35 AMB [email or web address]) OP-PT Subjective Patient Comments Patient Comments Pt has not lifted weights since his PT eval on Saturday and the burning is much better , he does continue to notice very mild sx when sleeping and when in prolonged positions ( like editing photos with arms elevated. PT-OP-J Posture/Palpation/Skin Start: 09/19/20 07:31 Freq: Status: Active Protocol: Document 09/19/20 12:45 AMB (Rec: 09/19/20 12:49 AMB [email or web address]) Posture Evaluation Comments Posture Comments Forward head PT-OP-K Range of Motion Start: 09/19/20 07:31 Freq: Status: Active Protocol: Document 09/19/20 12:45 AMB (Rec: 09/19/20 12:49 AMB [email or web address]) Cervical Spine Range of Motion Cervical Spine Active Degrees Comments Full range, pain with end range extension, feels off feeling with full cervical flexion down through his chest , pt's MD is aware and that is why he got imaging PT-OP-L Special Tests Start: 09/19/20 07:31 Freq: Status: Active Protocol: Document 09/23/20 08:15 AMB (Rec: 09/23/20 14:14 AMB [email or web address]) Special Tests Cervical Spine Special Tests Spurling's Test Test Results - Comments neck pain but no n/t PT-OP-M Strength Start: 09/19/20 07:31 Freq: Status: Active Protocol: Document 09/19/20 12:45 AMB (Rec: 09/19/20 12:49 AMB [email or web address]) Hip Strength Hip Manual Muscle Testing Left Comments All 5/5 Bilateral hip, knee, ankle PT-OP-O Vestibular Start: 09/19/20 12:45 Freq: Status: Active Protocol: Document 09/23/20 08:15 AMB (Rec: 09/23/20 14:16 AMB [email or web address]) Vestibular Assessment Visual Testing DVA (Line Degradation) 6 PT-OP-Q Treatments Start: 09/19/20 07:31 Freq: Status: Active Protocol: Document 09/23/20 08:15 AMB (Rec: 09/23/20 14:35 AMB [email or web address]) Manual Therapy Treatment Soft Tissue Mobilization 1 Body Location upper traps Mobilization Type Myofascial Release Intensity/Depth Moderate Body Position Sitting Neuro Re-Education Treatment Vestibular Rehabilitation VOR Retraining Comments standing/sitting- slight double vision at arms length, better closer in. SLOW- started in seated which pt was able to do, but more challenging in standing today Self-Care/Home Management Treatment Education Other Education Role of vision/sleep in overall improvement. Asked pt to not exercise extensively until he can do so without making burning worse so that he can get effective rest with sleep as that is so important for his brain healing. Canalithic Repositioning BPPV Treatment Linda Affected Canal(s) L Reps 1 Comments Tested L and R horizontal and posterior canals, most subjectively symptomatic to L posterior canal PT-OP-T Assessment and Plan Start: 09/19/20 07:31 Freq: Status: Active Protocol: Document 09/23/20 08:15 AMB (Rec: 09/23/20 14:35 AMB [email or web address]) Physical Therapy Assessment Goals Three Impairment Return to lifting Short Term Goal (STG) Fazal will work a full shift at work without burning/ numbness in his hands or feet. STG Duration 4 weeks Lay Out Worker Goal (LTG) Fazal will return to a normal weightlifting workout without rebound numbness/pain in his hands or feet. LTG Duration 8 weeks Two Impairment Dizziness Short Term Goal (STG) Fazal will lie down flat without dizziness. STG Duration 4 weeks Intermediate Goal (LTG) Fazal will roll over in bed without dizziness. LTG Duration 8 weeks One Impairment Neck pain Short Term Goal (STG) Fazal will look up with full extension without neck pain. STG Duration 4 weeks Intermediate Goal (LTG) Fazal will look down with full cervical flexion without any numbness/tingling. LTG Duration 8 weeks Assessment Summary Assessment Will request C[facility]spine MRI from [facility]. Pt is waiting for nerve conduction study. Pt did have dizziness that resembled L posterior canalisthesis today but if any nystagmus was very difficult to see. Treated in case, and will recheck to see if dizziness improves. Difficult case due to cervical spine/ central/ and possible peripheral vestibular sx. Began instruction in VOR but pt is very sensitive to blurriness at different distances. Have not offered HEP yet due to this. Will need to give VOR as HEP given pt's 6 line DVA change but need to find good distance/ speed for pt to perform first. Physical Therapy Plan Frequency and Duration Frequency of Treatment 2x/Week Duration of Treatment 8 weeks Plan of Care Start Date 09/19/20 Plan of Care End Date 11/14/20 Therapeutic Interventions Therapeutic Interventions Home Exercise Program,Manual Therapy,Neuromuscular Re- education,Self-Care/Home Management,Therapeutic Activities,Therapeutic Exercises Modalities Cold Pack/Ice Massage,Electric Stimulation Next Visit Focus/Plan Next Note Type Treatment Note Next Visit Plan Treat c-spine and central vestibular (VOR), educate on gentle return to exercise/ function, energy conservation.
--- NOTE | 2020-09-27 16:04 | PT.OTN ---
Current Diagnoses Other chronic pain (09/27/20) Cervicalgia (09/27/20) Low back pain (09/27/20) Other muscle spasm (09/27/20) Concussion with loss of consciousness of 30 minutes or less, sequela (09/27/20) Strain of muscle and tendon of front wall of thorax, initial encounter (09/27/20) Physical Therapy Treatment Note PT-OP-A Visit Information Start: 09/19/20 07:31 Freq: Status: Active Protocol: Document 09/27/20 12:01 OF (Rec: 09/27/20 16:04 OF [email or web address]) Out-Patient Physical Therapy Visit Information Visit Information Visit Type Treatment Note Visit Start Time 11:15 Visit Stop Time 12:01 Total Visit Minutes 46 Visit Number 3 PT-OP-B Current Condition Start: 09/19/20 07:31 Freq: Status: Active Protocol: Document 09/19/20 07:30 AMB (Rec: 09/19/20 07:58 AMB [id number]) Current Condition History of Current Condition Onset Date February 2020 Current Complaints paresthesias in bilat hands and feet associated with exercise History of Current Condition February had a traumatic brain injury (long boarding down [address]), lost conciousness for about 3 minutes, does not remember any events of that day. Was on bed rest for 2 months. 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 Dizziness- some days really bad other days not -off balance. Can't quite focus. When I roll over in bed to the right I get dizzy for a few seconds. Sensitivity to light. Blurry vision in the distant especially in low light scenarios. Walks 5 miles a days, lifts about 250 50# boxes at [employer] fore work currently, previous baseline was running 7 miles 6 days a week and heavy lifting . Prior history of low back pain. Current neck pain is significantly worse than it was before the accident. Treatment Goals Patient/Caregiver Goals Return to gym workouts without burning in hands and feet Prior Functional Status Baseline Function- ADL's Independent Baseline Function- Mobility Independent Current Functional Impairments (Reported) Functional Limitations- ADL's Dizziness/headaches/neck pain with ADLs and work, numbness/ burning in hands and feet in the evenings after working out Personal Factors Other Personal Factors That May Effect History of one concussion in Therapy/Recovery high school, history of pushing body with exercise ( college soccer) PT-OP-C Subjective Start: 09/19/20 07:31 Freq: Status: Active Protocol: Document 09/27/20 12:01 OF (Rec: 09/27/20 16:04 OF [email or web address]) OP-PT Subjective Patient Comments Patient Comments Pt states he has had inconsistent symptoms, occasional foot numbness, finger numbness, varied visual acuity at distance Patient Reported Progress Improving OP-PT Pain Assessment Pain Assessment Grid Paper Pain Assessment Grid Completed No Comments Pain Comments pt denies pain today PT-OP-J Posture/Palpation/Skin Start: 09/19/20 07:31 Freq: Status: Active Protocol: Document 09/19/20 12:45 AMB (Rec: 09/19/20 12:49 AMB [email or web address]) Posture Evaluation Comments Posture Comments Forward head PT-OP-K Range of Motion Start: 09/19/20 07:31 Freq: Status: Active Protocol: Document 09/19/20 12:45 AMB (Rec: 09/19/20 12:49 AMB [email or web address]) Cervical Spine Range of Motion Cervical Spine Active Degrees Comments Full range, pain with end range extension, feels off feeling with full cervical flexion down through his chest , pt's MD is aware and that is why he got imaging PT-OP-L Special Tests Start: 09/19/20 07:31 Freq: Status: Active Protocol: Document 09/23/20 08:15 AMB (Rec: 09/23/20 14:14 AMB [email or web address]) Special Tests Cervical Spine Special Tests Spurling's Test Test Results - Comments neck pain but no n/t PT-OP-M Strength Start: 09/19/20 07:31 Freq: Status: Active Protocol: Document 09/19/20 12:45 AMB (Rec: 09/19/20 12:49 AMB [email or web address]) Hip Strength Hip Manual Muscle Testing Left Comments All 5/5 Bilateral hip, knee, ankle PT-OP-O Vestibular Start: 09/19/20 12:45 Freq: Status: Active Protocol: Document 09/27/20 12:01 OF (Rec: 09/27/20 16:04 OF [email or web address]) Vestibular Assessment Comments Vestibular Comments pt has difficulty with dissociating gaze vs head movements, dizzy, no nystagmus PT-OP-Q Treatments Start: 09/19/20 07:31 Freq: Status: Active Protocol: Document 09/27/20 12:01 OF (Rec: 09/27/20 16:04 OF [email or web address]) Cardio Equipment Treadmill Duration (Minutes) 10 Speed 2.5 Other no symptoms with dual tasking Neuro Re-Education Treatment Balance Activities gaze dissociation Details moving target, moving head with stationary target Reps/Duration 10 x1min each Comments pt requires demo and cues for slow steady pursuits, dizzy with increased speed. Agreeable to HEP for habituation, non symptomatic speed Self-Care/Home Management Treatment Education Patient Education Home Exercise Program PT-OP-T Assessment and Plan Start: 09/19/20 07:31 Freq: Status: Active Protocol: Document 09/27/20 12:01 OF (Rec: 09/27/20 16:04 OF [email or web address]) Physical Therapy Assessment Rehab Potential Rehabilitation Potential Good Evaluation Complexity Number of Personal Factors/Comorbidities 1-2 Number of Body Systems Impaired 1-2 Clinical Presentation at Evaluation Evolving Impairments Impairments Activity Tolerance,Balance Goals Three Impairment Return to lifting Short Term Goal (STG) Fazal will work a full shift at work without burning/ numbness in his hands or feet. STG Duration 4 weeks Detention Goal (LTG) Fazal will return to a normal weightlifting workout without rebound numbness/pain in his hands or feet. LTG Duration 8 weeks Two Impairment Dizziness Short Term Goal (STG) Fazal will lie down flat without dizziness. STG Duration 4 weeks Receiving Manager Goal (LTG) Fazal will roll over in bed without dizziness. LTG Duration 8 weeks One Impairment Neck pain Short Term Goal (STG) Fazal will look up with full extension without neck pain. STG Duration 4 weeks Receiving Manager Goal (LTG) Fazal will look down with full cervical flexion without any numbness/tingling. LTG Duration 8 weeks Progress Towards Goals Progress Towards Goals Slow Progress due to Activity Tolerance Assessment Summary Assessment Awaiting C-spine MRI from [facility]. Pt is waiting for nerve conduction study. Pt had 2 line change with DVA today. He reports difficulty with varying activities, varying symptoms from UE tingling, foot numbness, hot sensation in forearms, eyelid pain, fatigue, headache Physical Therapy Plan Frequency and Duration Frequency of Treatment 2x/Week Plan of Care Start Date 09/19/20 Plan of Care End Date 11/14/20 Next Visit Focus/Plan Next Note Type Treatment Note Next Visit Plan Re assess VOR, HEP for static gaze head turns, moving target static head, awaiting MRI on c spine report from [facility]. Progress activity and exercise without provoking symptoms
--- NOTE | 2020-09-29 11:56 | PT.OTN ---
Current Diagnoses Other chronic pain (09/29/20) Cervicalgia (09/29/20) Low back pain (09/29/20) Other muscle spasm (09/29/20) Concussion with loss of consciousness of 30 minutes or less, sequela (09/29/20) Strain of muscle and tendon of front wall of thorax, initial encounter (09/29/20) Physical Therapy Treatment Note PT-OP-A Visit Information Start: 09/19/20 07:31 Freq: Status: Active Protocol: Document 09/29/20 08:15 AMB (Rec: 09/29/20 09:45 AMB [email or web address]) Out-Patient Physical Therapy Visit Information Visit Information Visit Type Treatment Note Visit Start Time 08:15 Visit Stop Time 09:05 Total Visit Minutes 50 Visit Number 4 PT-OP-B Current Condition Start: 09/19/20 07:31 Freq: Status: Active Protocol: Document 09/19/20 07:30 AMB (Rec: 09/19/20 07:58 AMB [id number]) Current Condition History of Current Condition Onset Date February 2020 Current Complaints paresthesias in bilat hands and feet associated with exercise History of Current Condition February had a traumatic brain injury (long boarding down [address]), lost conciousness for about 3 minutes, does not remember any events of that day. Was on bed rest for 2 months. 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 Dizziness- some days really bad other days not -off balance. Can't quite focus. When I roll over in bed to the right I get dizzy for a few seconds. Sensitivity to light. Blurry vision in the distant especially in low light scenarios. Walks 5 miles a days, lifts about 250 50# boxes at [employer] fore work currently, previous baseline was running 7 miles 6 days a week and heavy lifting . Prior history of low back pain. Current neck pain is significantly worse than it was before the accident. Treatment Goals Patient/Caregiver Goals Return to gym workouts without burning in hands and feet Prior Functional Status Baseline Function- ADL's Independent Baseline Function- Mobility Independent Current Functional Impairments (Reported) Functional Limitations- ADL's Dizziness/headaches/neck pain with ADLs and work, numbness/ burning in hands and feet in the evenings after working out Personal Factors Other Personal Factors That May Effect History of one concussion in Therapy/Recovery high school, history of pushing body with exercise ( college soccer) PT-OP-C Subjective Start: 09/19/20 07:31 Freq: Status: Active Protocol: Document 09/29/20 08:15 AMB (Rec: 09/29/20 09:45 AMB [email or web address]) OP-PT Subjective Patient Comments Patient Comments Pt states he si feeling better because he has been on vacation and not working, still had a little burning in his feet while sleeping but was able to roll over and get rid of the burning quickly. PT-OP-J Posture/Palpation/Skin Start: 09/19/20 07:31 Freq: Status: Active Protocol: Document 09/19/20 12:45 AMB (Rec: 09/19/20 12:49 AMB [email or web address]) Posture Evaluation Comments Posture Comments Forward head PT-OP-K Range of Motion Start: 09/19/20 07:31 Freq: Status: Active Protocol: Document 09/19/20 12:45 AMB (Rec: 09/19/20 12:49 AMB [email or web address]) Cervical Spine Range of Motion Cervical Spine Active Degrees Comments Full range, pain with end range extension, feels off feeling with full cervical flexion down through his chest , pt's MD is aware and that is why he got imaging PT-OP-L Special Tests Start: 09/19/20 07:31 Freq: Status: Active Protocol: Document 09/23/20 08:15 AMB (Rec: 09/23/20 14:14 AMB [email or web address]) Special Tests Cervical Spine Special Tests Spurling's Test Test Results - Comments neck pain but no n/t PT-OP-M Strength Start: 09/19/20 07:31 Freq: Status: Active Protocol: Document 09/19/20 12:45 AMB (Rec: 09/19/20 12:49 AMB [email or web address]) Hip Strength Hip Manual Muscle Testing Left Comments All 5/5 Bilateral hip, knee, ankle PT-OP-O Vestibular Start: 09/19/20 12:45 Freq: Status: Active Protocol: Document 09/27/20 12:01 OF (Rec: 09/27/20 16:04 OF [email or web address]) Vestibular Assessment Comments Vestibular Comments pt has difficulty with dissociating gaze vs head movements, dizzy, no nystagmus PT-OP-Q Treatments Start: 09/19/20 07:31 Freq: Status: Active Protocol: Document 09/29/20 08:15 AMB (Rec: 09/29/20 09:45 AMB [email or web address]) Neuro Re-Education Treatment Vestibular Rehabilitation Other- 1 Details Mert string Comments close in challenging VOR Retraining Comments standing/sitting- slight double vision at arms length, better further out. SLOW- started in seated which pt was able to do, better in standing today Canalithic Repositioning BPPV Treatment Linda Affected Canal(s) L Reps 1 Comments Good tolerance PT-OP-T Assessment and Plan Start: 09/19/20 07:31 Freq: Status: Active Protocol: Document 09/29/20 08:15 AMB (Rec: 09/29/20 09:45 AMB [email or web address]) Physical Therapy Assessment Goals Three Impairment Return to lifting Short Term Goal (STG) Fazal will work a full shift at work without burning/ numbness in his hands or feet. STG Duration 4 weeks Digital Retoucher Goal (LTG) Fazal will return to a normal weightlifting workout without rebound numbness/pain in his hands or feet. LTG Duration 8 weeks Two Impairment Dizziness Short Term Goal (STG) Fazal will lie down flat without dizziness. STG Duration 4 weeks Snf Goal (LTG) Fazal will roll over in bed without dizziness. LTG Duration 8 weeks One Impairment Neck pain Short Term Goal (STG) Fazal will look up with full extension without neck pain. STG Duration 4 weeks Snf Goal (LTG) Fazal will look down with full cervical flexion without any numbness/tingling. LTG Duration 8 weeks Assessment Summary Assessment Pt did not have as severe of dizziness with L [place] today, none with R. Treated the L due to mild sx remaining . Discussed VOR and given as HEP. Pt with significantly more difficulty with close up. Pt reports hx headaches with up close reading and did wear glasses as a child, encouraged to get vision checked as that could be an overall nervous system irritant that could be decreased. Discussed role of PT to try to decrease overall irritants to system in order to reduce burning sx. Physical Therapy Plan Frequency and Duration Frequency of Treatment 2x/Week Duration of Treatment 8 weeks Plan of Care Start Date 09/19/20 Plan of Care End Date 11/14/20 Next Visit Focus/Plan Next Note Type Treatment Note Next Visit Plan Manual/modalities and ther ex for cervical spine next two visits
--- NOTE | 2020-10-03 17:39 | PT.OTN ---
Current Diagnoses Other chronic pain (10/03/20) Cervicalgia (10/03/20) Low back pain (10/03/20) Other muscle spasm (10/03/20) Concussion with loss of consciousness of 30 minutes or less, sequela (10/03/20) Strain of muscle and tendon of front wall of thorax, initial encounter (10/03/20) Physical Therapy Treatment Note PT-OP-A Visit Information Start: 09/19/20 07:31 Freq: Status: Active Protocol: Document 10/03/20 16:52 MA (Rec: 10/03/20 17:39 MA [id number]) Out-Patient Physical Therapy Visit Information Visit Information Visit Type Treatment Note Visit Start Time 16:50 Visit Stop Time 17:28 Total Visit Minutes 38 Visit Number 5 Number of WIPING RAG WASHER Visits 1 PT-OP-B Current Condition Start: 09/19/20 07:31 Freq: Status: Active Protocol: Document 09/19/20 07:30 AMB (Rec: 09/19/20 07:58 AMB [id number]) Current Condition History of Current Condition Onset Date February 2020 Current Complaints paresthesias in bilat hands and feet associated with exercise History of Current Condition February had a traumatic brain injury (long boarding down [address]), lost conciousness for about 3 minutes, does not remember any events of that day. Was on bed rest for 2 months. 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 Dizziness- some days really bad other days not -off balance. Can't quite focus. When I roll over in bed to the right I get dizzy for a few seconds. Sensitivity to light. Blurry vision in the distant especially in low light scenarios. Walks 5 miles a days, lifts about 250 50# boxes at [employer] fore work currently, previous baseline was running 7 miles 6 days a week and heavy lifting . Prior history of low back pain. Current neck pain is significantly worse than it was before the accident. Treatment Goals Patient/Caregiver Goals Return to gym workouts without burning in hands and feet Prior Functional Status Baseline Function- ADL's Independent Baseline Function- Mobility Independent Current Functional Impairments (Reported) Functional Limitations- ADL's Dizziness/headaches/neck pain with ADLs and work, numbness/ burning in hands and feet in the evenings after working out Personal Factors Other Personal Factors That May Effect History of one concussion in Therapy/Recovery high school, history of pushing body with exercise ( college soccer) PT-OP-C Subjective Start: 09/19/20 07:31 Freq: Status: Active Protocol: Document 10/03/20 16:52 MA (Rec: 10/03/20 17:39 MA [id number]) OP-PT Subjective Patient Comments Patient Comments pt walked 4 miles today and feels pretty good. He has nerve conduction test scheduled for Nov 03 PT-OP-J Posture/Palpation/Skin Start: 09/19/20 07:31 Freq: Status: Active Protocol: Document 09/19/20 12:45 AMB (Rec: 09/19/20 12:49 AMB [email or web address]) Posture Evaluation Comments Posture Comments Forward head PT-OP-K Range of Motion Start: 09/19/20 07:31 Freq: Status: Active Protocol: Document 09/19/20 12:45 AMB (Rec: 09/19/20 12:49 AMB [email or web address]) Cervical Spine Range of Motion Cervical Spine Active Degrees Comments Full range, pain with end range extension, feels off feeling with full cervical flexion down through his chest , pt's MD is aware and that is why he got imaging PT-OP-L Special Tests Start: 09/19/20 07:31 Freq: Status: Active Protocol: Document 09/23/20 08:15 AMB (Rec: 09/23/20 14:14 AMB [email or web address]) Special Tests Cervical Spine Special Tests Spurling's Test Test Results - Comments neck pain but no n/t PT-OP-M Strength Start: 09/19/20 07:31 Freq: Status: Active Protocol: Document 09/19/20 12:45 AMB (Rec: 09/19/20 12:49 AMB [email or web address]) Hip Strength Hip Manual Muscle Testing Left Comments All 5/5 Bilateral hip, knee, ankle PT-OP-O Vestibular Start: 09/19/20 12:45 Freq: Status: Active Protocol: Document 09/27/20 12:01 OF (Rec: 09/27/20 16:04 OF [email or web address]) Vestibular Assessment Comments Vestibular Comments pt has difficulty with dissociating gaze vs head movements, dizzy, no nystagmus PT-OP-Q Treatments Start: 09/19/20 07:31 Freq: Status: Active Protocol: Document 10/03/20 16:52 MA (Rec: 10/03/20 17:39 MA [id number]) Therapeutic Exercises Supine Exercises CS rotation Supine Exercise Name rotating CS L/R Side bilateral Reps/Minutes 6x Comments minor dizziness during R rotation Sitting Exercises Chin Tucks Sitting Exercise Name Chin tucks Reps/Minutes 10x 5 sec hold Comments added to HEP Levator Stretch Sitting Exercise Name levator Scapulae Stretch Side bilateral Reps/Minutes 2x30 sec Comments added to HEP UT Stretch Side bilateral Reps/Minutes 2x30 sec Comments added to HEP Manual Therapy Treatment Soft Tissue Mobilization SCM Body Location Sree SCM Mobilization Type Myofascial Release Intensity/Depth Moderate 1 Body Location upper traps Mobilization Type Myofascial Release Intensity/Depth Moderate Body Position Supine Manual Traction Cervical traction Body Position Supine Reps/Duration 2x60 sec Manual Techniques UT stretch Type passive UT stretch in supine Body Position Supine Reps/Duration holding 60 sec Self-Care/Home Management Treatment Education Patient Education Home Exercise Program Other Education Discussed pt's posture and proper CS alignment. Added UT and levator stretches along with chin tucks for improved CS posture. PT-OP-T Assessment and Plan Start: 09/19/20 07:31 Freq: Status: Active Protocol: Document 10/03/20 16:52 MA (Rec: 10/03/20 17:39 MA [id number]) Physical Therapy Assessment Goals Three Impairment Return to lifting Short Term Goal (STG) Fazal will work a full shift at work without burning/ numbness in his hands or feet. 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 LTG Duration 8 weeks Two Impairment Dizziness Short Term Goal (STG) Fazal will lie down flat without dizziness. STG Duration 4 weeks Clean[employer] U[employer]olstery Goal (LTG) Fazal will roll over in bed without dizziness. LTG Duration 8 weeks One Impairment Neck pain Short Term Goal (STG) Fazal will look up with full extension without neck pain. STG Duration 4 weeks Skilled Nursing Goal (LTG) Fazal will look down with full cervical flexion without any numbness/tingling. LTG Duration 8 weeks Assessment Summary Assessment Pt had minor dizziness when rotating CS R. He feels his neck is tight but it hurts when he stretches his head fwd with pt deomstrating cervical flexion. Discussed not pulling on head into flexion but instead doing a UT and levator stretch in seated to target tight neck mms. Added UT and levator stretches to HEP along with chin tuck exercise for improving fwd head posture. Pt had good relief after manual work and states I feel looser than I have in a long time after today's session. Physical Therapy Plan Frequency and Duration Frequency of Treatment 2x/Week Duration of Treatment 8 weeks Plan of Care Start Date 09/19/20 Plan of Care End Date 11/14/20 Therapeutic Interventions Therapeutic Interventions Home Exercise Program,Manual Therapy,Neuromuscular Re- education,Self-Care/Home Management,Therapeutic Activities,Therapeutic Exercises Modalities Cold Pack/Ice Massage,Electric Stimulation Next Visit Focus/Plan Next Note Type Treatment Note Next Visit Plan Try MHP to CS next session. Continue with manual to CS and review new HEP
--- NOTE | 2020-10-07 16:57 | PT.OTN ---
Current Diagnoses Other chronic pain (10/07/20) Cervicalgia (10/07/20) Low back pain (10/07/20) Other muscle spasm (10/07/20) Concussion with loss of consciousness of 30 minutes or less, sequela (10/07/20) Strain of muscle and tendon of front wall of thorax, initial encounter (10/07/20) Physical Therapy Treatment Note PT-OP-A Visit Information Start: 09/19/20 07:31 Freq: Status: Active Protocol: Document 10/07/20 16:05 MA (Rec: 10/07/20 16:57 MA [id number]) Out-Patient Physical Therapy Visit Information Visit Information Visit Type Treatment Note Visit Start Time 16:00 Visit Stop Time 16:45 Total Visit Minutes 45 Visit Number 6 Number of HERB COUNSELOR Visits 2 PT-OP-B Current Condition Start: 09/19/20 07:31 Freq: Status: Active Protocol: Document 09/19/20 07:30 AMB (Rec: 09/19/20 07:58 AMB [id number]) Current Condition History of Current Condition Onset Date February 2020 Current Complaints paresthesias in bilat hands and feet associated with exercise History of Current Condition February had a traumatic brain injury (long boarding down [address]), lost conciousness for about 3 minutes, does not remember any events of that day. Was on bed rest for 2 months. 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 Dizziness- some days really bad other days not -off balance. Can't quite focus. When I roll over in bed to the right I get dizzy for a few seconds. Sensitivity to light. Blurry vision in the distant especially in low light scenarios. Walks 5 miles a days, lifts about 250 50# boxes at [employer] fore work currently, previous baseline was running 7 miles 6 days a week and heavy lifting . Prior history of low back pain. Current neck pain is significantly worse than it was before the accident. Treatment Goals Patient/Caregiver Goals Return to gym workouts without burning in hands and feet Prior Functional Status Baseline Function- ADL's Independent Baseline Function- Mobility Independent Current Functional Impairments (Reported) Functional Limitations- ADL's Dizziness/headaches/neck pain with ADLs and work, numbness/ burning in hands and feet in the evenings after working out Personal Factors Other Personal Factors That May Effect History of one concussion in Therapy/Recovery high school, history of pushing body with exercise ( college soccer) PT-OP-C Subjective Start: 09/19/20 07:31 Freq: Status: Active Protocol: Document 10/07/20 16:05 MA (Rec: 10/07/20 16:57 MA [id number]) OP-PT Subjective Patient Comments Patient Comments Pt feels last sessions STM helped his neck pain PT-OP-J Posture/Palpation/Skin Start: 09/19/20 07:31 Freq: Status: Active Protocol: Document 09/19/20 12:45 AMB (Rec: 09/19/20 12:49 AMB [email or web address]) Posture Evaluation Comments Posture Comments Forward head PT-OP-K Range of Motion Start: 09/19/20 07:31 Freq: Status: Active Protocol: Document 09/19/20 12:45 AMB (Rec: 09/19/20 12:49 AMB [email or web address]) Cervical Spine Range of Motion Cervical Spine Active Degrees Comments Full range, pain with end range extension, feels off feeling with full cervical flexion down through his chest , pt's MD is aware and that is why he got imaging PT-OP-L Special Tests Start: 09/19/20 07:31 Freq: Status: Active Protocol: Document 09/23/20 08:15 AMB (Rec: 09/23/20 14:14 AMB [email or web address]) Special Tests Cervical Spine Special Tests Spurling's Test Test Results - Comments neck pain but no n/t PT-OP-M Strength Start: 09/19/20 07:31 Freq: Status: Active Protocol: Document 09/19/20 12:45 AMB (Rec: 09/19/20 12:49 AMB [email or web address]) Hip Strength Hip Manual Muscle Testing Left Comments All 5/5 Bilateral hip, knee, ankle PT-OP-O Vestibular Start: 09/19/20 12:45 Freq: Status: Active Protocol: Document 09/27/20 12:01 OF (Rec: 09/27/20 16:04 OF [email or web address]) Vestibular Assessment Comments Vestibular Comments pt has difficulty with dissociating gaze vs head movements, dizzy, no nystagmus PT-OP-Q Treatments Start: 09/19/20 07:31 Freq: Status: Active Protocol: Document 10/07/20 16:05 MA (Rec: 10/07/20 16:57 MA [id number]) Therapeutic Exercises Sitting Exercises Chin Tucks Sitting Exercise Name Chin tucks Reps/Minutes 10x 5 sec hold Comments added to HEP Levator Stretch Sitting Exercise Name levator Scapulae Stretch Side bilateral Reps/Minutes 2x30 sec Comments added to HEP UT Stretch Side bilateral Reps/Minutes 2x30 sec Comments added to HEP Standing Exercises Tennis Ball Standing Exercise Name Self-STM to parascapular region Equipment Used tennis ball Reps/Minutes 4' Manual Therapy Treatment Soft Tissue Mobilization SCM Body Location Sree SCM Mobilization Type Myofascial Release Intensity/Depth Moderate 1 Body Location upper traps R>L Mobilization Type Myofascial Release Intensity/Depth Moderate Body Position Supine Manual Traction Cervical traction Body Position Supine Reps/Duration 2x60 sec Manual Techniques UT stretch Type passive UT stretch in supine Body Position Supine Reps/Duration holding 60 sec Self-Care/Home Management Treatment Education Patient Education Home Exercise Program Other Education Self-STM with tennis ball to sree parascapular region added to HEP PT-OP-T Assessment and Plan Start: 09/19/20 07:31 Freq: Status: Active Protocol: Document 10/07/20 16:05 MA (Rec: 10/07/20 16:57 MA [id number]) Physical Therapy Assessment Goals Three Impairment Return to lifting Short Term Goal (STG) Fazal will work a full shift at work without burning/ numbness in his hands or feet. STG Duration 4 weeks [facility] Goal (LTG) Fazal will return to a normal weightlifting workout without rebound numbness/pain in his hands or feet. LTG Duration 8 weeks Two Impairment Dizziness Short Term Goal (STG) Fazal will lie down flat without dizziness. STG Duration 4 weeks Private Branch Exchange Service Adviser Goal (LTG) Fazal will roll over in bed without dizziness. LTG Duration 8 weeks One Impairment Neck pain Short Term Goal (STG) Fazal will look up with full extension without neck pain. STG Duration 4 weeks [facility] Goal (LTG) Fazal will look down with full cervical flexion without any numbness/tingling. LTG Duration 8 weeks Assessment Summary Assessment Pt showed increased tightness through R cervical musculature today. Pt believes it is due to returning to work this week from vacation. Added self-STM with tennis ball to parascapular mms to HEP. Pt feels added HEP stretches from previous session have helped with his neck pain. Physical Therapy Plan Frequency and Duration Frequency of Treatment 2x/Week Duration of Treatment 8 weeks Plan of Care Start Date 09/19/20 Plan of Care End Date 11/14/20 Therapeutic Interventions Therapeutic Interventions Home Exercise Program,Manual Therapy,Neuromuscular Re- education,Self-Care/Home Management,Therapeutic Activities,Therapeutic Exercises Modalities Cold Pack/Ice Massage,Electric Stimulation Next Visit Focus/Plan Next Note Type Treatment Note Next Visit Plan Try MHP to CS next session. Continue with manual to CS and review new HEP
--- NOTE | 2020-10-10 09:57 | PT.OTN ---
Current Diagnoses Other chronic pain (10/10/20) Cervicalgia (10/10/20) Low back pain (10/10/20) Other muscle spasm (10/10/20) Concussion with loss of consciousness of 30 minutes or less, sequela (10/10/20) Strain of muscle and tendon of front wall of thorax, initial encounter (10/10/20) Physical Therapy Treatment Note PT-OP-A Visit Information Start: 09/19/20 07:31 Freq: Status: Active Protocol: Document 10/10/20 09:47 OF (Rec: 10/10/20 09:57 OF [id number]) Out-Patient Physical Therapy Visit Information Visit Information Visit Type Treatment Note Visit Start Time 09:02 Visit Stop Time 09:47 Total Visit Minutes 45 Visit Number 7 PT-OP-B Current Condition Start: 09/19/20 07:31 Freq: Status: Active Protocol: Document 09/19/20 07:30 AMB (Rec: 09/19/20 07:58 AMB [id number]) Current Condition History of Current Condition Onset Date February 2020 Current Complaints paresthesias in bilat hands and feet associated with exercise History of Current Condition February had a traumatic brain injury (long boarding down [address]), lost conciousness for about 3 minutes, does not remember any events of that day. Was on bed rest for 2 months. 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 Dizziness- some days really bad other days not -off balance. Can't quite focus. When I roll over in bed to the right I get dizzy for a few seconds. Sensitivity to light. Blurry vision in the distant especially in low light scenarios. Walks 5 miles a days, lifts about 250 50# boxes at [employer] fore work currently, previous baseline was running 7 miles 6 days a week and heavy lifting . Prior history of low back pain. Current neck pain is significantly worse than it was before the accident. Treatment Goals Patient/Caregiver Goals Return to gym workouts without burning in hands and feet Prior Functional Status Baseline Function- ADL's Independent Baseline Function- Mobility Independent Current Functional Impairments (Reported) Functional Limitations- ADL's Dizziness/headaches/neck pain with ADLs and work, numbness/ burning in hands and feet in the evenings after working out Personal Factors Other Personal Factors That May Effect History of one concussion in Therapy/Recovery high school, history of pushing body with exercise ( college soccer) PT-OP-C Subjective Start: 09/19/20 07:31 Freq: Status: Active Protocol: Document 10/10/20 09:47 OF (Rec: 10/10/20 09:57 OF [id number]) OP-PT Subjective Patient Comments Patient Comments pt states his neck has been better before work, worse afterward. He has had burning sensations in B feet, he indicates R lateral calf as well. Occasionaly burning in hands, limited to ulnar side of palm Patient Reported Progress Same OP-PT Pain Assessment Pain Assessment Grid Paper Pain Assessment Grid Completed No: pt denies pain during tx PT-OP-J Posture/Palpation/Skin Start: 09/19/20 07:31 Freq: Status: Active Protocol: Document 09/19/20 12:45 AMB (Rec: 09/19/20 12:49 AMB [email or web address]) Posture Evaluation Comments Posture Comments Forward head PT-OP-K Range of Motion Start: 09/19/20 07:31 Freq: Status: Active Protocol: Document 09/19/20 12:45 AMB (Rec: 09/19/20 12:49 AMB [email or web address]) Cervical Spine Range of Motion Cervical Spine Active Degrees Comments Full range, pain with end range extension, feels off feeling with full cervical flexion down through his chest , pt's MD is aware and that is why he got imaging PT-OP-L Special Tests Start: 09/19/20 07:31 Freq: Status: Active Protocol: Document 09/23/20 08:15 AMB (Rec: 09/23/20 14:14 AMB [email or web address]) Special Tests Cervical Spine Special Tests Spurling's Test Test Results - Comments neck pain but no n/t PT-OP-M Strength Start: 09/19/20 07:31 Freq: Status: Active Protocol: Document 09/19/20 12:45 AMB (Rec: 09/19/20 12:49 AMB [email or web address]) Hip Strength Hip Manual Muscle Testing Left Comments All 5/5 Bilateral hip, knee, ankle PT-OP-O Vestibular Start: 09/19/20 12:45 Freq: Status: Active Protocol: Document 09/27/20 12:01 OF (Rec: 09/27/20 16:04 OF [email or web address]) Vestibular Assessment Comments Vestibular Comments pt has difficulty with dissociating gaze vs head movements, dizzy, no nystagmus PT-OP-Q Treatments Start: 09/19/20 07:31 Freq: Status: Active Protocol: Document 10/10/20 09:47 OF (Rec: 10/10/20 09:57 OF [id number]) Therapeutic Exercises Supine Exercises CS rotation Supine Exercise Name rotating CS L/R Side bilateral Reps/Minutes 10x Comments no dizziness reported today Sitting Exercises Chin Tucks Sitting Exercise Name Chin tucks Reps/Minutes 10x 5 sec hold Comments added to HEP, attempted supine as well, difficult for pt Levator Stretch Sitting Exercise Name levator Scapulae Stretch Side bilateral Reps/Minutes 2x30 sec Comments added to HEP UT Stretch Side bilateral Reps/Minutes 2x30 sec Comments added to HEP, passive in supine as well Manual Therapy Treatment Soft Tissue Mobilization 1 Body Location upper traps Mobilization Type Myofascial Release,Sustained Pressure Intensity/Depth Moderate Body Position Supine Comments UT stretching, deep pressure both improve symptoms per pt Manual Techniques UT stretch Type passive UT stretch in supine Body Position Supine Reps/Duration holding 60 sec, 3x Neuro Re-Education Treatment Vestibular Rehabilitation VOR Retraining Comments sitting only, sup<>inf, difficulty dissociating which is required at work as pt works standing stocking produce, loading boxes, lifting 50lbs repeatedly Self-Care/Home Management Treatment Education Patient Education Body Mechanics,Home Exercise Program Other Education pt educated upon proper activity level, light exercise to assess response, offered workplace modifications, HEP review. Pt has limited carryover of HEP requires demo and tactile cues for all exercises. PT-OP-T Assessment and Plan Start: 09/19/20 07:31 Freq: Status: Active Protocol: Document 10/10/20 09:47 OF (Rec: 10/10/20 09:57 OF [id number]) Physical Therapy Assessment Rehab Potential Rehabilitation Potential Good Evaluation Complexity Number of Personal Factors/Comorbidities 1-2 Number of Body Systems Impaired 1-2 Clinical Presentation at Evaluation Evolving Impairments Impairments Activity Tolerance,Soft Tissue Mobility,Strength,Vestibular Goals Three Impairment Return to lifting Short Term Goal (STG) Fazal will work a full shift at work without burning/ numbness in his hands or feet. STG Duration 4 weeks Detention Goal (LTG) Fazal will return to a normal weightlifting workout without rebound numbness/pain in his hands or feet. LTG Duration 8 weeks Two Impairment Dizziness Short Term Goal (STG) Fazal will lie down flat without dizziness. STG Duration 4 weeks Rubber Covering Machine Operator Goal (LTG) Fazal will roll over in bed without dizziness. LTG Duration 8 weeks One Impairment Neck pain Short Term Goal (STG) Fazal will look up with full extension without neck pain. STG Duration 4 weeks Rubber Covering Machine Operator Goal (LTG) Fazal will look down with full cervical flexion without any numbness/tingling. LTG Duration 8 weeks Progress Towards Goals Progress Towards Goals Slow Progress due to Medical Issues Assessment Summary Assessment pt has poor HEP carryover, requires demo for each activity. Educated upon returning to exercise in limited fashion, assessing response next visit. Physical Therapy Plan Frequency and Duration Frequency of Treatment 2x/Week Duration of Treatment 8 weeks Plan of Care Start Date 09/19/20 Plan of Care End Date 11/14/20 Next Visit Focus/Plan Next Note Type Treatment Note Next Visit Plan assess response to light exercises prescribed today, deadlifts, squats at home with 50lb. rows seated, HEP for cervical ROM.
--- NOTE | 2020-10-13 09:28 | PT.OTN ---
Current Diagnoses Other chronic pain (10/13/20) Cervicalgia (10/13/20) Low back pain (10/13/20) Other muscle spasm (10/13/20) Concussion with loss of consciousness of 30 minutes or less, sequela (10/13/20) Strain of muscle and tendon of front wall of thorax, initial encounter (10/13/20) Physical Therapy Treatment Note PT-OP-A Visit Information Start: 09/19/20 07:31 Freq: Status: Active Protocol: Document 10/13/20 07:30 AMB (Rec: 10/13/20 08:50 AMB [id number]) Out-Patient Physical Therapy Visit Information Visit Information Visit Type Treatment Note Visit Start Time 07:30 Visit Stop Time 08:15 Total Visit Minutes 45 Visit Number 8 PT-OP-B Current Condition Start: 09/19/20 07:31 Freq: Status: Active Protocol: Document 09/19/20 07:30 AMB (Rec: 09/19/20 07:58 AMB [id number]) Current Condition History of Current Condition Onset Date February 2020 Current Complaints paresthesias in bilat hands and feet associated with exercise History of Current Condition February had a traumatic brain injury (long boarding down [address]), lost conciousness for about 3 minutes, does not remember any events of that day. Was on bed rest for 2 months. 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 Dizziness- some days really bad other days not -off balance. Can't quite focus. When I roll over in bed to the right I get dizzy for a few seconds. Sensitivity to light. Blurry vision in the distant especially in low light scenarios. Walks 5 miles a days, lifts about 250 50# boxes at [employer] fore work currently, previous baseline was running 7 miles 6 days a week and heavy lifting . Prior history of low back pain. Current neck pain is significantly worse than it was before the accident. Treatment Goals Patient/Caregiver Goals Return to gym workouts without burning in hands and feet Prior Functional Status Baseline Function- ADL's Independent Baseline Function- Mobility Independent Current Functional Impairments (Reported) Functional Limitations- ADL's Dizziness/headaches/neck pain with ADLs and work, numbness/ burning in hands and feet in the evenings after working out Personal Factors Other Personal Factors That May Effect History of one concussion in Therapy/Recovery high school, history of pushing body with exercise ( college soccer) PT-OP-C Subjective Start: 09/19/20 07:31 Freq: Status: Active Protocol: Document 10/13/20 07:30 AMB (Rec: 10/13/20 08:50 AMB [id number]) OP-PT Subjective Patient Comments Patient Comments B feet burning continues to be the worst symptom, worst at night. Flexion seems to be better, extension or sidebending. PT-OP-J Posture/Palpation/Skin Start: 09/19/20 07:31 Freq: Status: Active Protocol: Document 09/19/20 12:45 AMB (Rec: 09/19/20 12:49 AMB [email or web address]) Posture Evaluation Comments Posture Comments Forward head PT-OP-K Range of Motion Start: 09/19/20 07:31 Freq: Status: Active Protocol: Document 09/19/20 12:45 AMB (Rec: 09/19/20 12:49 AMB [email or web address]) Cervical Spine Range of Motion Cervical Spine Active Degrees Comments Full range, pain with end range extension, feels off feeling with full cervical flexion down through his chest , pt's MD is aware and that is why he got imaging PT-OP-L Special Tests Start: 09/19/20 07:31 Freq: Status: Active Protocol: Document 09/23/20 08:15 AMB (Rec: 09/23/20 14:14 AMB [email or web address]) Special Tests Cervical Spine Special Tests Spurling's Test Test Results - Comments neck pain but no n/t PT-OP-M Strength Start: 09/19/20 07:31 Freq: Status: Active Protocol: Document 09/19/20 12:45 AMB (Rec: 09/19/20 12:49 AMB [email or web address]) Hip Strength Hip Manual Muscle Testing Left Comments All 5/5 Bilateral hip, knee, ankle PT-OP-O Vestibular Start: 09/19/20 12:45 Freq: Status: Active Protocol: Document 09/27/20 12:01 OF (Rec: 09/27/20 16:04 OF [email or web address]) Vestibular Assessment Comments Vestibular Comments pt has difficulty with dissociating gaze vs head movements, dizzy, no nystagmus PT-OP-Q Treatments Start: 06/28/21 07:31 Freq: Status: Active Protocol: Document 10/13/20 07:30 AMB (Rec: 10/13/20 09:27 AMB [email or web address]) Manual Therapy Treatment Soft Tissue Mobilization 1 Body Location upper traps Mobilization Type Myofascial Release,Sustained Pressure Intensity/Depth Moderate Body Position Supine Comments UT stretching, deep pressure both improve symptoms per pt Manual Traction Cervical traction Body Position Supine Reps/Duration 5x60 sec Manual Techniques UT stretch Type passive UT stretch in supine Body Position Supine Reps/Duration holding 60 sec, 3x Neuro Re-Education Treatment Vestibular Rehabilitation VOR Retraining Details slow Background plain Distance From Target 5' Position standing PT-OP-T Assessment and Plan Start: 09/19/20 07:31 Freq: Status: Active Protocol: Document 10/13/20 07:30 AMB (Rec: 10/13/20 09:27 AMB [email or web address]) Physical Therapy Assessment Assessment Summary Assessment Pt has not been doing exercises prescribed at last visit because he is nervous to increase the burning in his feet again. He continues to have burning in his feet that is worse in certain positions: prone and sidelying. Fast VOR continues to be challenging, but better with slow VOR. Feels pretty good until 1 or 2 pm and then fatigue and overall brain sensitivity increases. Dizziness rolling over in bed is better. Physical Therapy Plan Next Visit Focus/Plan Next Note Type Treatment Note Next Visit Plan Reassess chin tuck, VOR exercises
--- NOTE | 2020-10-24 08:54 | PT.OTN ---
Current Diagnoses Other chronic pain (10/24/20) Cervicalgia (10/24/20) Low back pain (10/24/20) Other muscle spasm (10/24/20) Concussion with loss of consciousness of 30 minutes or less, sequela (10/24/20) Strain of muscle and tendon of front wall of thorax, initial encounter (10/24/20) Physical Therapy Treatment Note PT-OP-A Visit Information Start: 09/19/20 07:31 Freq: Status: Active Protocol: Document 10/24/20 07:30 AMB (Rec: 10/24/20 08:20 AMB [id number]) Out-Patient Physical Therapy Visit Information Visit Information Visit Type Treatment Note Visit Start Time 07:30 Visit Stop Time 08:15 Total Visit Minutes 45 Visit Number 9 PT-OP-B Current Condition Start: 09/19/20 07:31 Freq: Status: Active Protocol: Document 09/19/20 07:30 AMB (Rec: 09/19/20 07:58 AMB [id number]) Current Condition History of Current Condition Onset Date February 2020 Current Complaints paresthesias in bilat hands and feet associated with exercise History of Current Condition February had a traumatic brain injury (long boarding down [address]), lost conciousness for about 3 minutes, does not remember any events of that day. Was on bed rest for 2 months. 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 Dizziness- some days really bad other days not -off balance. Can't quite focus. When I roll over in bed to the right I get dizzy for a few seconds. Sensitivity to light. Blurry vision in the distant especially in low light scenarios. Walks 5 miles a days, lifts about 250 50# boxes at [employer] fore work currently, previous baseline was running 7 miles 6 days a week and heavy lifting . Prior history of low back pain. Current neck pain is significantly worse than it was before the accident. Treatment Goals Patient/Caregiver Goals Return to gym workouts without burning in hands and feet Prior Functional Status Baseline Function- ADL's Independent Baseline Function- Mobility Independent Current Functional Impairments (Reported) Functional Limitations- ADL's Dizziness/headaches/neck pain with ADLs and work, numbness/ burning in hands and feet in the evenings after working out Personal Factors Other Personal Factors That May Effect History of one concussion in Therapy/Recovery high school, history of pushing body with exercise ( college soccer) PT-OP-C Subjective Start: 09/19/20 07:31 Freq: Status: Active Protocol: Document 10/24/20 07:30 AMB (Rec: 10/24/20 08:54 AMB [email or web address]) OP-PT Subjective Patient Comments Patient Comments Pt reports he had a seizure while at the ED for norovirus due to his loss of fluids. He has been feeling very fatigued for the last week. PT-OP-J Posture/Palpation/Skin Start: 09/19/20 07:31 Freq: Status: Active Protocol: Document 09/19/20 12:45 AMB (Rec: 09/19/20 12:49 AMB [email or web address]) Posture Evaluation Comments Posture Comments Forward head PT-OP-K Range of Motion Start: 09/19/20 07:31 Freq: Status: Active Protocol: Document 09/19/20 12:45 AMB (Rec: 09/19/20 12:49 AMB [email or web address]) Cervical Spine Range of Motion Cervical Spine Active Degrees Comments Full range, pain with end range extension, feels off feeling with full cervical flexion down through his chest , pt's MD is aware and that is why he got imaging PT-OP-L Special Tests Start: 09/19/20 07:31 Freq: Status: Active Protocol: Document 09/23/20 08:15 AMB (Rec: 09/23/20 14:14 AMB [email or web address]) Special Tests Cervical Spine Special Tests Spurling's Test Test Results - Comments neck pain but no n/t PT-OP-M Strength Start: 09/19/20 07:31 Freq: Status: Active Protocol: Document 09/19/20 12:45 AMB (Rec: 09/19/20 12:49 AMB [email or web address]) Hip Strength Hip Manual Muscle Testing Left Comments All 5/5 Bilateral hip, knee, ankle PT-OP-O Vestibular Start: 09/19/20 12:45 Freq: Status: Active Protocol: Document 09/27/20 12:01 OF (Rec: 09/27/20 16:04 OF [email or web address]) Vestibular Assessment Comments Vestibular Comments pt has difficulty with dissociating gaze vs head movements, dizzy, no nystagmus PT-OP-Q Treatments Start: 09/19/20 07:31 Freq: Status: Active Protocol: Document 10/24/20 07:30 AMB (Rec: 10/24/20 08:54 AMB [email or web address]) Gym Equipment Shuttle Balance 1 Details RED, hip width JAMEEL Reps/Duration 5 min Comments partial squat, good ankle response Neuro Re-Education Treatment Vestibular Rehabilitation VOR Retraining Details slow Background plain Distance From Target 5' Position standing Comments added heel to toe balance PT-OP-T Assessment and Plan Start: 09/19/20 07:31 Freq: Status: Active Protocol: Document 10/24/20 07:30 AMB (Rec: 10/24/20 08:54 AMB [email or web address]) Physical Therapy Assessment Assessment Summary Assessment Pt has stiffness in his neck from sleeping a lot after his norovirus. He has noticed less burning because he hasn't been working or doing much. Encouraged gentle return to activity, could consider flat terrain hike of short mileage, but would recommend against weightlifting still. Did work on balance today which is good static, but with head turns or eyes closed is not what it should be in a 30 year old. Physical Therapy Plan Next Visit Focus/Plan Next Note Type Treatment Note Next Visit Plan Reassess chin tuck, VOR exercises, balance exercises
--- NOTE | 2020-10-31 15:47 | PT.OTN ---
Current Diagnoses Other chronic pain (10/31/20) Cervicalgia (10/31/20) Low back pain (10/31/20) Other muscle spasm (10/31/20) Concussion with loss of consciousness of 30 minutes or less, sequela (10/31/20) Strain of muscle and tendon of front wall of thorax, initial encounter (10/31/20) Physical Therapy Treatment Note PT-OP-A Visit Information Start: 09/19/20 07:31 Freq: Status: Active Protocol: Document 10/31/20 09:00 AMB (Rec: 10/31/20 09:23 AMB [id number]) Out-Patient Physical Therapy Visit Information Visit Information Visit Type Treatment Note Visit Start Time 09:00 Visit Stop Time 09:45 Total Visit Minutes 45 Visit Number 10 PT-OP-B Current Condition Start: 09/19/20 07:31 Freq: Status: Active Protocol: Document 09/19/20 07:30 AMB (Rec: 09/19/20 07:58 AMB [id number]) Current Condition History of Current Condition Onset Date February 2020 Current Complaints paresthesias in bilat hands and feet associated with exercise History of Current Condition February had a traumatic brain injury (long boarding down [address]), lost conciousness for about 3 minutes, does not remember any events of that day. Was on bed rest for 2 months. 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 Dizziness- some days really bad other days not -off balance. Can't quite focus. When I roll over in bed to the right I get dizzy for a few seconds. Sensitivity to light. Blurry vision in the distant especially in low light scenarios. Walks 5 miles a days, lifts about 250 50# boxes at [employer] fore work currently, previous baseline was running 7 miles 6 days a week and heavy lifting . Prior history of low back pain. Current neck pain is significantly worse than it was before the accident. Treatment Goals Patient/Caregiver Goals Return to gym workouts without burning in hands and feet Prior Functional Status Baseline Function- ADL's Independent Baseline Function- Mobility Independent Current Functional Impairments (Reported) Functional Limitations- ADL's Dizziness/headaches/neck pain with ADLs and work, numbness/ burning in hands and feet in the evenings after working out Personal Factors Other Personal Factors That May Effect History of one concussion in Therapy/Recovery high school, history of pushing body with exercise ( college soccer) PT-OP-C Subjective Start: 09/19/20 07:31 Freq: Status: Active Protocol: Document 10/31/20 09:00 AMB (Rec: 11/02/20 15:47 AMB [email or web address]) OP-PT Subjective Patient Comments Patient Comments Fazal states he is feeling the best he's felt in months because he hasn't been working out. He is getting his nerve conduction study this week. PT-OP-J Posture/Palpation/Skin Start: 09/19/20 07:31 Freq: Status: Active Protocol: Document 09/19/20 12:45 AMB (Rec: 09/19/20 12:49 AMB [email or web address]) Posture Evaluation Comments Posture Comments Forward head PT-OP-K Range of Motion Start: 09/19/20 07:31 Freq: Status: Active Protocol: Document 09/19/20 12:45 AMB (Rec: 09/19/20 12:49 AMB [email or web address]) Cervical Spine Range of Motion Cervical Spine Active Degrees Comments Full range, pain with end range extension, feels off feeling with full cervical flexion down through his chest , pt's MD is aware and that is why he got imaging PT-OP-L Special Tests Start: 09/19/20 07:31 Freq: Status: Active Protocol: Document 09/23/20 08:15 AMB (Rec: 09/23/20 14:14 AMB [email or web address]) Special Tests Cervical Spine Special Tests Spurling's Test Test Results - Comments neck pain but no n/t PT-OP-M Strength Start: 09/19/20 07:31 Freq: Status: Active Protocol: Document 09/19/20 12:45 AMB (Rec: 09/19/20 12:49 AMB [email or web address]) Hip Strength Hip Manual Muscle Testing Left Comments All 5/5 Bilateral hip, knee, ankle PT-OP-O Vestibular Start: 09/19/20 12:45 Freq: Status: Active Protocol: Document 09/27/20 12:01 OF (Rec: 09/27/20 16:04 OF [email or web address]) Vestibular Assessment Comments Vestibular Comments pt has difficulty with dissociating gaze vs head movements, dizzy, no nystagmus PT-OP-Q Treatments Start: 09/19/20 07:31 Freq: Status: Active Protocol: Document 10/31/20 09:00 AMB (Rec: 11/02/20 15:47 AMB [email or web address]) Therapeutic Exercises Supine Exercises 1 Supine Exercise Name table top tap down Comments cues for TA Sidelying Exercises 1 Sidelying Exercise Name modified side plank Side bilateral Reps/Minutes 30x4 Other Exercises 1 Other Exercise Name jermaine pose, downward dog, cobra Reps/Minutes 10 min PT-OP-T Assessment and Plan Start: 09/19/20 07:31 Freq: Status: Active Protocol: Document 10/31/20 09:00 AMB (Rec: 11/02/20 15:47 AMB [email or web address]) Physical Therapy Assessment Assessment Summary Assessment Pt feels that it is very difficult for him to do gentle exercise, it's more all or nothing. Recommended possible biking or swimming (although careful wiht neck) if he could bike on flat terrain away from cars because pt is looking for cardio. Also recommended gentle yoga class, as pt has difficulty not pushing self with core stability, but hasn't done yoga before and in a gentle class perhaps would be easier not to go too hard, which exacerbates his sx. Physical Therapy Plan Next Visit Focus/Plan Next Note Type Treatment Note Next Visit Plan Follow up on pt's very gentle return to exercise, follow up on vision
--- NOTE | 2020-11-11 16:00 | PT.OTN ---
Current Diagnoses Other chronic pain (11/11/20) Cervicalgia (11/11/20) Low back pain (11/11/20) Other muscle spasm (11/11/20) Concussion with loss of consciousness of 30 minutes or less, sequela (11/11/20) Strain of muscle and tendon of front wall of thorax, initial encounter (11/11/20) Physical Therapy Treatment Note PT-OP-A Visit Information Start: 09/19/20 07:31 Freq: Status: Active Protocol: Document 11/11/20 13:30 AMB (Rec: 11/11/20 14:04 AMB [id number]) Out-Patient Physical Therapy Visit Information Visit Information Visit Type Treatment Note Visit Start Time 13:30 Visit Stop Time 14:15 Total Visit Minutes 45 Visit Number 11 PT-OP-B Current Condition Start: 09/19/20 07:31 Freq: Status: Active Protocol: Document 09/19/20 07:30 AMB (Rec: 09/19/20 07:58 AMB [id number]) Current Condition History of Current Condition Onset Date February 2020 Current Complaints paresthesias in bilat hands and feet associated with exercise History of Current Condition February had a traumatic brain injury (long boarding down [address]), lost conciousness for about 3 minutes, does not remember any events of that day. Was on bed rest for 2 months. 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 Dizziness- some days really bad other days not -off balance. Can't quite focus. When I roll over in bed to the right I get dizzy for a few seconds. Sensitivity to light. Blurry vision in the distant especially in low light scenarios. Walks 5 miles a days, lifts about 250 50# boxes at [employer] fore work currently, previous baseline was running 7 miles 6 days a week and heavy lifting . Prior history of low back pain. Current neck pain is significantly worse than it was before the accident. Treatment Goals Patient/Caregiver Goals Return to gym workouts without burning in hands and feet Prior Functional Status Baseline Function- ADL's Independent Baseline Function- Mobility Independent Current Functional Impairments (Reported) Functional Limitations- ADL's Dizziness/headaches/neck pain with ADLs and work, numbness/ burning in hands and feet in the evenings after working out Personal Factors Other Personal Factors That May Effect History of one concussion in Therapy/Recovery high school, history of pushing body with exercise ( college soccer) PT-OP-C Subjective Start: 09/19/20 07:31 Freq: Status: Active Protocol: Document 11/11/20 13:30 AMB (Rec: 11/11/20 14:04 AMB [id number]) OP-PT Subjective Patient Comments Patient Comments Pt reports nerve conduction study was normal. 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 Has not done yoga but is working on stretching more, has not returned to the gym. Today drank a lot of coffee and has not eaten much. PT-OP-J Posture/Palpation/Skin Start: 09/19/20 07:31 Freq: Status: Active Protocol: Document 09/19/20 12:45 AMB (Rec: 09/19/20 12:49 AMB [email or web address]) Posture Evaluation Comments Posture Comments Forward head PT-OP-K Range of Motion Start: 09/19/20 07:31 Freq: Status: Active Protocol: Document 09/19/20 12:45 AMB (Rec: 09/19/20 12:49 AMB [email or web address]) Cervical Spine Range of Motion Cervical Spine Active Degrees Comments Full range, pain with end range extension, feels off feeling with full cervical flexion down through his chest , pt's MD is aware and that is why he got imaging PT-OP-L Special Tests Start: 09/19/20 07:31 Freq: Status: Active Protocol: Document 09/23/20 08:15 AMB (Rec: 09/23/20 14:14 AMB [email or web address]) Special Tests Cervical Spine Special Tests Spurling's Test Test Results - Comments neck pain but no n/t PT-OP-M Strength Start: 09/19/20 07:31 Freq: Status: Active Protocol: Document 09/19/20 12:45 AMB (Rec: 09/19/20 12:49 AMB [email or web address]) Hip Strength Hip Manual Muscle Testing Left Comments All 5/5 Bilateral hip, knee, ankle PT-OP-O Vestibular Start: 09/19/20 12:45 Freq: Status: Active Protocol: Document 09/27/20 12:01 OF (Rec: 09/27/20 16:04 OF [email or web address]) Vestibular Assessment Comments Vestibular Comments pt has difficulty with dissociating gaze vs head movements, dizzy, no nystagmus PT-OP-Q Treatments Start: 09/19/20 07:31 Freq: Status: Active Protocol: Document 11/11/20 13:30 AMB (Rec: 11/12/20 08:37 AMB [email or web address]) Neuro Re-Education Treatment Other Activities 2 Comments how to care for body re: eating, sleeping, avoiding caffeine, super processed foods, the role of diet/sleep in our ability to tolerate more after TBI 1 Details body mechanics training Comments lifting pallets at work PT-OP-T Assessment and Plan Start: 09/19/20 07:31 Freq: Status: Active Protocol: Document 11/11/20 13:30 AMB (Rec: 11/11/20 14:04 AMB [id number]) Physical Therapy Assessment Goals Three Impairment Return to lifting Short Term Goal (STG) Fazal will work a full shift at work without burning/ numbness in his hands or feet. STG Duration 4 weeks Half-Way Goal (LTG) Fazal will return to a normal weightlifting workout without rebound numbness/pain in his hands or feet. LTG Duration 8 weeks Two Impairment Dizziness Short Term Goal (STG) Fazal will lie down flat without dizziness. STG Duration MET Pharmaceutical Assistant Goal (LTG) Fazal will roll over in bed without dizziness. LTG Duration MET One Impairment Neck pain Short Term Goal (STG) Fazal will look up with full extension without neck pain. STG Duration MET Half-Way Goal (LTG) Fazal will look down with full cervical flexion without any numbness/tingling. LTG Duration MET Assessment Summary Assessment Nauseous since getting norovirus, especially when pushing himself physically ( breaking down pallets). Educated on taking care of himself to reduce brain fog/ sx of TBI. Could consider providing written instructions due to pt's memory. Did suggest speech therapy if memory continues to be an issue. Again recommended getting eyes checked. Follow up on sx after return to breaking down pallets at work. Physical Therapy Plan Next Visit Focus/Plan Next Note Type Progress Note Next Visit Plan Follow up on pt's very gentle return to exercise, follow up on vision
--- NOTE | 2020-11-25 15:30 | PT.OTN ---
Current Diagnoses Other chronic pain (11/25/20) Cervicalgia (11/25/20) Low back pain (11/25/20) Other muscle spasm (11/25/20) Concussion with loss of consciousness of 30 minutes or less, sequela (11/25/20) Strain of muscle and tendon of front wall of thorax, initial encounter (11/25/20) Physical Therapy Treatment Note PT-OP-A Visit Information Start: 09/19/20 07:31 Freq: Status: Active Protocol: Document 11/25/20 14:15 AMB (Rec: 11/25/20 15:29 AMB [id number]) Out-Patient Physical Therapy Visit Information Visit Information Visit Type Progress Note Visit Start Time 14:15 Visit Stop Time 15:00 Total Visit Minutes 45 Visit Number 12 PT-OP-B Current Condition Start: 09/19/20 07:31 Freq: Status: Active Protocol: Document 09/19/20 07:30 AMB (Rec: 09/19/20 07:58 AMB [id number]) Current Condition History of Current Condition Onset Date February 2020 Current Complaints paresthesias in bilat hands and feet associated with exercise History of Current Condition February had a traumatic brain injury (long boarding down [address]), lost conciousness for about 3 minutes, does not remember any events of that day. Was on bed rest for 2 months. 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 Dizziness- some days really bad other days not -off balance. Can't quite focus. When I roll over in bed to the right I get dizzy for a few seconds. Sensitivity to light. Blurry vision in the distant especially in low light scenarios. Walks 5 miles a days, lifts about 250 50# boxes at [employer] fore work currently, previous baseline was running 7 miles 6 days a week and heavy lifting . Prior history of low back pain. Current neck pain is significantly worse than it was before the accident. Treatment Goals Patient/Caregiver Goals Return to gym workouts without burning in hands and feet Prior Functional Status Baseline Function- ADL's Independent Baseline Function- Mobility Independent Current Functional Impairments (Reported) Functional Limitations- ADL's Dizziness/headaches/neck pain with ADLs and work, numbness/ burning in hands and feet in the evenings after working out Personal Factors Other Personal Factors That May Effect History of one concussion in Therapy/Recovery high school, history of pushing body with exercise ( college soccer) PT-OP-C Subjective Start: 09/19/20 07:31 Freq: Status: Active Protocol: Document 11/25/20 14:15 AMB (Rec: 11/25/20 15:29 AMB [id number]) OP-PT Subjective Patient Comments Patient Comments Pt states today is the best I 've felt since I injured my head Today I mowed the lawn, lifted weights with 17# did dumbells. PT-OP-J Posture/Palpation/Skin Start: 09/19/20 07:31 Freq: Status: Active Protocol: Document 09/19/20 12:45 AMB (Rec: 09/19/20 12:49 AMB [email or web address]) Posture Evaluation Comments Posture Comments Forward head PT-OP-K Range of Motion Start: 09/19/20 07:31 Freq: Status: Active Protocol: Document 09/19/20 12:45 AMB (Rec: 09/19/20 12:49 AMB [email or web address]) Cervical Spine Range of Motion Cervical Spine Active Degrees Comments Full range, pain with end range extension, feels off feeling with full cervical flexion down through his chest , pt's MD is aware and that is why he got imaging PT-OP-L Special Tests Start: 09/19/20 07:31 Freq: Status: Active Protocol: Document 09/23/20 08:15 AMB (Rec: 09/23/20 14:14 AMB [email or web address]) Special Tests Cervical Spine Special Tests Spurling's Test Test Results - Comments neck pain but no n/t PT-OP-M Strength Start: 09/19/20 07:31 Freq: Status: Active Protocol: Document 09/19/20 12:45 AMB (Rec: 09/19/20 12:49 AMB [email or web address]) Hip Strength Hip Manual Muscle Testing Left Comments All 5/5 Bilateral hip, knee, ankle PT-OP-O Vestibular Start: 09/19/20 12:45 Freq: Status: Active Protocol: Document 09/27/20 12:01 OF (Rec: 09/27/20 16:04 OF [email or web address]) Vestibular Assessment Comments Vestibular Comments pt has difficulty with dissociating gaze vs head movements, dizzy, no nystagmus PT-OP-Q Treatments Start: 09/19/20 07:31 Freq: Status: Active Protocol: Document 11/25/20 14:15 AMB (Rec: 11/25/20 15:29 AMB [id number]) Cardio Equipment Elliptical Duration (Minutes) 5 Resistance 1 Therapeutic Exercises Other Exercises 3 Other Exercise Name cross countries Reps/Minutes 10 2 Other Exercise Name modified burpees Reps/Minutes 2x10 Comments no jumping PT-OP-T Assessment and Plan Start: 09/19/20 07:31 Freq: Status: Active Protocol: Document 11/25/20 14:15 AMB (Rec: 11/25/20 15:29 AMB [id number]) Physical Therapy Assessment Goals Three Impairment Return to lifting Short Term Goal (STG) Fazal will work a full shift at work without burning/ numbness in his hands or feet. STG Duration 4 weeks Boat Outfitting Supervisor Goal (LTG) Fazal will return to a normal weightlifting workout without rebound numbness/pain in his hands or feet. LTG Duration 8 weeks Two Impairment Dizziness Short Term Goal (STG) Fazal will lie down flat without dizziness. STG Duration MET Boat Outfitting Supervisor Goal (LTG) Fazal will roll over in bed without dizziness. LTG Duration MET One Impairment Neck pain Short Term Goal (STG) Fazal will look up with full extension without neck pain. STG Duration MET Boat Outfitting Supervisor Goal (LTG) Fazal will look down with full cervical flexion without any numbness/tingling. LTG Duration MET Assessment Summary Assessment Fazal is feeling better overall he is still hopeful to return to exercise. He is noticing very mild burning in his feet. He was somewhat SOB with cardio today, but most likely because he really hasn' t done any cardio. He is hoping to return to running, educated pt in couch to 5K running program. Physical Therapy Plan Frequency and Duration Frequency of Treatment 1x/Week Duration of Treatment 6 weeks Plan of Care Start Date 11/25/20 Plan of Care End Date 01/06/21 Therapeutic Interventions Therapeutic Interventions Home Exercise Program,Manual Therapy,Neuromuscular Re- education,Self-Care/Home Management,Therapeutic Activities,Therapeutic Exercises Modalities Cold Pack/Ice Massage,Electric Stimulation Next Visit Focus/Plan Next Note Type Progress Note Next Visit Plan Follow up on pt's very gentle return to exercise, follow up on vision
--- NOTE | 2020-11-25 15:30 | PT.OPPOC ---
Physical, Occupational & Speech Therapy At [facility] Current Diagnoses Other chronic pain (11/25/20) Cervicalgia (11/25/20) Low back pain (11/25/20) Other muscle spasm (11/25/20) Concussion with loss of consciousness of 30 minutes or less, sequela (11/25/20) Strain of muscle and tendon of front wall of thorax, initial encounter (11/25/20) Visit Care Team Role Provider Type Casper Pulido MD Attending Provider Physician Family Provider Primary Care Provider Referring Provider Specialty: Family Practice Address: [address] [place] [address] Email: [email or web address] Plan Of Care PT-OP-T Assessment and Plan Start: 09/19/20 07:31 Freq: Status: Active Protocol: Document 11/25/20 14:15 AMB (Rec: 11/25/20 15:29 AMB [id number]) Physical Therapy Assessment Goals Three Impairment Return to lifting Short Term Goal (STG) Fazal will work a full shift at work without burning/ numbness in his hands or feet. STG Duration 4 weeks Retirement Goal (LTG) Fazal will return to a normal weightlifting workout without rebound numbness/pain in his hands or feet. LTG Duration 8 weeks Two Impairment Dizziness Short Term Goal (STG) Fazal will lie down flat without dizziness. STG Duration MET Retirement Goal (LTG) Fazal will roll over in bed without dizziness. LTG Duration MET One Impairment Neck pain Short Term Goal (STG) Fazal will look up with full extension without neck pain. 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 LTG Duration MET Assessment Summary Assessment Fazal is feeling better overall he is still hopeful to return to exercise. He is noticing very mild burning in his feet. He was somewhat SOB with cardio today, but most likely because he really hasn' t done any cardio. He is hoping to return to running, educated pt in couch to 5K running program. Physical Therapy Plan Frequency and Duration Frequency of Treatment 1x/Week Duration of Treatment 6 weeks Plan of Care Start Date 11/25/20 Plan of Care End Date 01/06/21 Therapeutic Interventions Therapeutic Interventions Home Exercise Program,Manual Therapy,Neuromuscular Re- education,Self-Care/Home Management,Therapeutic Activities,Therapeutic Exercises Modalities Cold Pack/Ice Massage,Electric Stimulation Next Visit Focus/Plan Next Note Type Progress Note Next Visit Plan Follow up on pt's very gentle return to exercise, follow up on vision Plan of Care Dates Plan of Care Start Date 11/25/20 Plan of Care End Date 01/06/21 Electronically Signed by: Nevin Barrera, PT 11/25/20 1527 Please Sign and Return: I have reviewed this Plan of Care and certify that the skilled therapy services above are required to meet the patient?s needs. Physician Signature Date Printed Name and Credentials Clinical Instructor Signature Printed Name and Credentials
--- NOTE | 2020-12-02 15:07 | PT.OTN ---
Current Diagnoses Other chronic pain (12/02/20) Cervicalgia (12/02/20) Low back pain (12/02/20) Other muscle spasm (12/02/20) Concussion with loss of consciousness of 30 minutes or less, sequela (12/02/20) Strain of muscle and tendon of front wall of thorax, initial encounter (12/02/20) Physical Therapy Treatment Note PT-OP-A Visit Information Start: 09/19/20 07:31 Freq: Status: Active Protocol: Document 12/02/20 14:30 AMB (Rec: 12/02/20 15:07 AMB [id number]) Out-Patient Physical Therapy Visit Information Visit Information Visit Type Treatment Note Visit Start Time 14:30 Visit Stop Time 14:55 Total Visit Minutes 25 Visit Number 13 PT-OP-B Current Condition Start: 09/19/20 07:31 Freq: Status: Active Protocol: Document 09/19/20 07:30 AMB (Rec: 09/19/20 07:58 AMB [id number]) Current Condition History of Current Condition Onset Date February 2020 Current Complaints paresthesias in bilat hands and feet associated with exercise History of Current Condition February had a traumatic brain injury (long boarding down [address]), lost conciousness for about 3 minutes, does not remember any events of that day. Was on bed rest for 2 months. 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 Dizziness- some days really bad other days not -off balance. Can't quite focus. When I roll over in bed to the right I get dizzy for a few seconds. Sensitivity to light. Blurry vision in the distant especially in low light scenarios. Walks 5 miles a days, lifts about 250 50# boxes at [employer] fore work currently, previous baseline was running 7 miles 6 days a week and heavy lifting . Prior history of low back pain. Current neck pain is significantly worse than it was before the accident. Treatment Goals Patient/Caregiver Goals Return to gym workouts without burning in hands and feet Prior Functional Status Baseline Function- ADL's Independent Baseline Function- Mobility Independent Current Functional Impairments (Reported) Functional Limitations- ADL's Dizziness/headaches/neck pain with ADLs and work, numbness/ burning in hands and feet in the evenings after working out Personal Factors Other Personal Factors That May Effect History of one concussion in Therapy/Recovery high school, history of pushing body with exercise ( college soccer) PT-OP-C Subjective Start: 09/19/20 07:31 Freq: Status: Active Protocol: Document 12/02/20 14:30 AMB (Rec: 12/02/20 15:07 AMB [id number]) OP-PT Subjective Patient Comments Patient Comments Pt went for a .5 mile jog twice and felt fine. has been up since 4 am working a very long day. Tired. No real increase in nerve sx. PT-OP-J Posture/Palpation/Skin Start: 09/19/20 07:31 Freq: Status: Active Protocol: Document 09/19/20 12:45 AMB (Rec: 09/19/20 12:49 AMB [email or web address]) Posture Evaluation Comments Posture Comments Forward head PT-OP-K Range of Motion Start: 09/19/20 07:31 Freq: Status: Active Protocol: Document 09/19/20 12:45 AMB (Rec: 09/19/20 12:49 AMB [email or web address]) Cervical Spine Range of Motion Cervical Spine Active Degrees Comments Full range, pain with end range extension, feels off feeling with full cervical flexion down through his chest , pt's MD is aware and that is why he got imaging PT-OP-L Special Tests Start: 09/19/20 07:31 Freq: Status: Active Protocol: Document 09/23/20 08:15 AMB (Rec: 09/23/20 14:14 AMB [email or web address]) Special Tests Cervical Spine Special Tests Spurling's Test Test Results - Comments neck pain but no n/t PT-OP-M Strength Start: 09/19/20 07:31 Freq: Status: Active Protocol: Document 09/19/20 12:45 AMB (Rec: 09/19/20 12:49 AMB [email or web address]) Hip Strength Hip Manual Muscle Testing Left Comments All 5/5 Bilateral hip, knee, ankle PT-OP-O Vestibular Start: 09/19/20 12:45 Freq: Status: Active Protocol: Document 09/27/20 12:01 OF (Rec: 09/27/20 16:04 OF [email or web address]) Vestibular Assessment Comments Vestibular Comments pt has difficulty with dissociating gaze vs head movements, dizzy, no nystagmus PT-OP-Q Treatments Start: 09/19/20 07:31 Freq: Status: Active Protocol: Document 12/02/20 14:30 AMB (Rec: 12/02/20 15:07 AMB [id number]) Therapeutic Exercises Other Exercises return to exercise Other Exercise Name warm up/cool down Comments running, bodyweight exercise with attention to balance/ endurance PT-OP-T Assessment and Plan Start: 09/19/20 07:31 Freq: Status: Active Protocol: Document 12/02/20 14:30 AMB (Rec: 12/02/20 15:07 AMB [id number]) Physical Therapy Assessment Assessment Summary Assessment Fazal is very tired today due to increased work. Discussed at depth return to exercise goals. Physical Therapy Plan Next Visit Focus/Plan Next Visit Plan Consider d/c, follow up on pt' s goals for return to exercise , vision and balance concerns.
--- NOTE | 2020-12-14 14:59 | PT.OPDS ---
Current Diagnoses Other chronic pain (12/02/20) Cervicalgia (12/02/20) Low back pain (12/02/20) Other muscle spasm (12/02/20) Concussion with loss of consciousness of 30 minutes or less, sequela (12/02/20) Strain of muscle and tendon of front wall of thorax, initial encounter (12/02/20) Visit Care Team Role Provider Type Casper Pulido MD Attending Provider Physician Family Provider Primary Care Provider Referring Provider Specialty: Family Practice Address: [address] [place] [address], [facility] Email: [email or web address] Visit Number Visit Number 13 Discharge Summary PT-OP-B Current Condition Start: 09/19/20 07:31 Freq: Status: Active Protocol: Document 09/19/20 07:30 AMB (Rec: 09/19/20 07:58 AMB [id number]) Current Condition History of Current Condition Onset Date February 2020 Current Complaints paresthesias in bilat hands and feet associated with exercise History of Current Condition February had a traumatic brain injury (long boarding down [address]), lost conciousness for about 3 minutes, does not remember any events of that day. Was on bed rest for 2 months. 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 Dizziness- some days really bad other days not -off balance. Can't quite focus. When I roll over in bed to the right I get dizzy for a few seconds. Sensitivity to light. Blurry vision in the distant especially in low light scenarios. Walks 5 miles a days, lifts about 250 50# boxes at [employer] fore work currently, previous baseline was running 7 miles 6 days a week and heavy lifting . Prior history of low back pain. Current neck pain is significantly worse than it was before the accident. Treatment Goals Patient/Caregiver Goals Return to gym workouts without burning in hands and feet Prior Functional Status Baseline Function- ADL's Independent Baseline Function- Mobility Independent Current Functional Impairments (Reported) Functional Limitations- ADL's Dizziness/headaches/neck pain with ADLs and work, numbness/ burning in hands and feet in the evenings after working out Personal Factors Other Personal Factors That May Effect History of one concussion in Therapy/Recovery high school, history of pushing body with exercise ( college soccer) PT-OP-C Subjective Start: 09/19/20 07:31 Freq: Status: Active Protocol: Document 12/02/20 14:30 AMB (Rec: 12/02/20 15:07 AMB [id number]) OP-PT Subjective Patient Comments Patient Comments Pt went for a .5 mile jog twice and felt fine. has been up since 4 am working a very long day. Tired. No real increase in nerve sx. PT-OP-J Posture/Palpation/Skin Start: 09/19/20 07:31 Freq: Status: Active Protocol: Document 09/19/20 12:45 AMB (Rec: 09/19/20 12:49 AMB [email or web address]) Posture Evaluation Comments Posture Comments Forward head PT-OP-K Range of Motion Start: 09/19/20 07:31 Freq: Status: Active Protocol: Document 09/19/20 12:45 AMB (Rec: 09/19/20 12:49 AMB [email or web address]) Cervical Spine Range of Motion Cervical Spine Active Degrees Comments Full range, pain with end range extension, feels off feeling with full cervical flexion down through his chest , pt's MD is aware and that is why he got imaging PT-OP-L Special Tests Start: 09/19/20 07:31 Freq: Status: Active Protocol: Document 09/23/20 08:15 AMB (Rec: 09/23/20 14:14 AMB [email or web address]) Special Tests Cervical Spine Special Tests Spurling's Test Test Results - Comments neck pain but no n/t PT-OP-M Strength Start: 09/19/20 07:31 Freq: Status: Active Protocol: Document 09/19/20 12:45 AMB (Rec: 09/19/20 12:49 AMB [email or web address]) Hip Strength Hip Manual Muscle Testing Left Comments All 5/5 Bilateral hip, knee, ankle PT-OP-O Vestibular Start: 09/19/20 12:45 Freq: Status: Active Protocol: Document 09/27/20 12:01 OF (Rec: 09/27/20 16:04 OF [email or web address]) Vestibular Assessment Comments Vestibular Comments pt has difficulty with dissociating gaze vs head movements, dizzy, no nystagmus PT-OP-T Assessment and Plan Start: 09/19/20 07:31 Freq: Status: Active Protocol: Document 12/14/20 14:50 AMB (Rec: 12/14/20 14:58 AMB [email or web address]) Physical Therapy Assessment Goals Three Impairment Return to lifting Short Term Goal (STG) Fazal will work a full shift at work without burning/ numbness in his hands or feet. STG Duration 4 weeks Personal Chef Goal (LTG) Fazal will return to a normal weightlifting workout without rebound numbness/pain in his hands or feet. LTG Duration 8 weeks Two Impairment Dizziness Short Term Goal (STG) Fazal will lie down flat without dizziness. STG Duration MET Penitentiary Goal (LTG) Fazal will roll over in bed without dizziness. LTG Duration MET One Impairment Neck pain Short Term Goal (STG) Fazal will look up with full extension without neck pain. STG Duration MET Personal Chef Goal (LTG) Fazal will look down with full cervical flexion without any numbness/tingling. LTG Duration MET Assessment Summary Assessment Fazal's symptoms have improved slowly over his time in physical therapy. He has not returned to his high level weight lifting, but over time in PT has come to the realization that that is not really the best thing for him at this point and he would benefit from a more scaled back exercise routine which he has been extensively educated it. He continues to have low level symptoms of brain fog, eye fatigue, and burning in his feet but feels that it is managable at this point, therefore he is discharged. Physical Therapy Plan Discharge Physical Therapy Discharge Reasons Patient Request
== END 2020-12-15 07:52 | disposition home or self-care (01) ==
LOC: PHYS 14:30
PROVIDERS: Family Provider Family Medicine; PCP Family Medicine; Referring Provider Family Medicine; Visit Provider Family Medicine
DX: M62.838 Other muscle spasm (principal); S29.011A Strain of muscle and tendon of front wall of thorax, initial encounter; M54.5 Low back pain; M54.2 Cervicalgia; G89.29 Other chronic pain; S06.0X1S Concussion with loss of consciousness of 30 minutes or less, sequela
CPT/HCPCS: 95992; 97110; 97112; 97140; 97163; 97535

== ENCOUNTER → 2022-10-17 09:55 | Outpatient (CLI) | payer OTHER, SELFPAY | PROVIDERS: Family Provider Family Medicine; PCP Family Medicine; Visit Provider Nurse Practitioner Family | DX: J02.9 Acute pharyngitis, unspecified (principal) | CPT/HCPCS: 87070 ==